=== PATIENT | female | born 1950 | race Caucasian/White ===

== ENCOUNTER 2024-04-22 16:00 | Inpatient (IN) | payer MEDICARE, SELFPAY ==
[2024-04-22] VITALS (11 sets, daily range): BP systolic 120–170; BP diastolic 54–96; PULSE 72–85; RESP 12–22; TEMP 36.3–37.2; O2SAT 97–100; BMI 24.0
--- NOTE | 2024-04-22 17:02 | CT_ITS ---
STUDY: CT ABDOMEN AND PELVIS WITH CONTRAST REASON FOR EXAM: Female, 73 years old. abdominal pain RADIATION DOSAGE (If Supplied By Facility): CTDIvol = ( 7.90 ) mGy, DLP = ( 301.85 ) mGycm TECHNIQUE: Transaxial images were obtained from the dome of the diaphragm to the symphysis pubis without oral contrast. IV 100mL Isovue-370 was administered. Sagittal and coronal images were reconstructed. Individualized dose optimization techniques were used for this CT. COMPARISON: None. FINDINGS: The visualized lung bases are unremarkable. The visualized portions of the heart are within normal limits. Normal liver. There are surgical clips in the gallbladder fossa consistent with a prior cholecystectomy. Normal spleen. Incidental 2.2 cm splenule at the splenic hilum. Normal pancreas. Normal bilateral adrenal glands. Normal right kidney. Normal left kidney. Evaluation of the GI tract is limited by absence of oral contrast. Cannot exclude stomach wall thickening. No dilated loops of bowel or evidence for obstruction. Cannot exclude segmental thickening of the soler of the small bowel. Cannot exclude enteritis. Diffusely abnormal large bowel consistent with marked diffuse wall thickening and pericolonic fat stranding. Findings most consistent with severe nonspecific pancolitis. Diverticulosis without definite diverticulitis. Appendix within normal limits. Normal abdominal aorta. Normal inferior vena cava. Normal retroperitoneum. Normal urinary bladder. There is absence of the uterus consistent with a prior hysterectomy. Normal abdominal wall. Normal osseous structures. CT/Abdomen/Pelvis W IV Cont ONLY IMPRESSION: Severe nonspecific pancolitis. Electronically Signed: Bartolome Moseley MD at 18:25 EDT ,
[2024-04-22 17:14] LABS: Absolute Lymphocyte Count 0.94 X10^3/uL (0.83-4.51); Absolute Neutrophil Count 22.1 X10^3/uL (2.0-7.7); Basophil# 0.07 X10^3/uL; Basophil% 0.3 % (0-1); Eosinophil# 0.09 X10^3/uL; Eosinophils% 0.4 % (0-5); Hematocrit 37.7 % (37-47); Hemoglobin 12.9 g/dL (12.0-15.0); Lymphocyte # 0.94 X10^3/ul (0.83-4.51); Lymphocyte % 3.9 % (19-41); Mean Corp Hgb Conc 34.2 g/dL (32-36); Mean Corpuscular Hgb 28.4 pg (27.0-32.0); Mean Platelet Vol. 10.5 fl (6.2-12.0); Monocyte# 0.89 X10^3/uL; Monocyte% 3.7 % (0-10); NRBC Flagged by Analyzer 0 % (0-5); Neutrophil # 22.05 X10^3/uL (2.7-7.7); Neutrophil % 90.9 % (47-70); POSITIVE DIFFERENTIAL YES; Platelet Count 269 K/mm3 (150-450); RBC Distribution Width CV 13.2 % (11.6-14.6); RBC Distribution Width SD 39.8 fl (35.1-43.9); Red Blood Count 4.54 M/mm3 (4.2-5.4); White Blood Count 24.2 K/mm3 (4.4-11.0)
--- NOTE | 2024-04-22 17:14 | EX.ED.GENINJ ---
HPI History of Present Illness Chief Complaint: Nausea/Vomiting/Diarrhea Narrative Narrative: Chief complaint and HPI: Abdominal pain. 73-year-old female with history of HTN, gout, history of C. difficile who lives in [place] presents for evaluation of abdominal pain, nausea, vomiting, diarrhea. Patient states she recently traveled here from [place]. She states for the past several days she has been having symptomatic fevers, abdominal pain, nausea, vomiting, diarrhea. She states this is different than her C. difficile. She denies any recent antibiotic use. She denies any chest pain, shortness of breath, cough, URI symptoms. Denies any dark or bloody bowel movements. Denies any dysuria or hematuria. Does endorse decreased p.o. intake as well as increasing weakness. Review of systems: See HPI Medications: As listed on the chart Allergies: As listed on the chart PFSH: Per chart Vital signs: As listed on the chart. Reviewed. Physical exam: Gen: A&O x3, NAD but unwell appearing Head: Normocephalic, atraumatic Eyes: No sclera icterus, conjunctiva clear ENT: Dry mucous membranes Neck: Trachea midline, No JVD CV: RRR, no murmurs, no peripheral edema Resp: Lungs CTA BL, no w/r/c GI: Abd soft, non-distended, diffuse tenderness to palpation worse in the bilateral lower quadrants, voluntary guarding, no rebound, no rigidity Musc: Full ROM, no deformity Skin: Warm, dry Neuro: Alert, oriented, grossly intact, sensation intact Psych: Cooperative, appropriate mood and affect [facility] Medical History (Updated 04/22/24 @ 20:[address] Jordyn Queen MD) Iron deficiency anemia Chronic anemia GERD (gastroesophageal reflux disease) History of Clostridium difficile colitis Former tobacco use HTN (hypertension) HLD (hyperlipidemia) CKD (chronic kidney disease), stage III Diabetes mellitus, type 2 CAD (coronary artery disease) Heart failure Myocardial infarct Home Medications ?Medication ?Instructions ?Recorded ?Last Taken ?Type allopurinol 100 mg tablet 100 mg PO DAILY 04/22/24 04/21/24 History aspirin 81 mg capsule 81 mg PO DAILY 04/22/24 04/21/24 History carvedilol 25 mg tablet 25 mg PO BID 04/22/24 04/21/24 History clopidogrel 75 mg tablet 75 mg PO QHS 04/22/24 04/21/24 History duloxetine 60 mg capsule,delayed 60 mg PO BID 04/22/24 04/21/24 History release ergocalciferol (vitamin D2) 1,250 1,250 mcg PO QWEEK 04/22/24 04/21/24 History mcg (50,000 unit) capsule ferrous sulfate 325 mg (65 mg 325 mg PO QHS 04/22/24 04/21/24 History iron) tablet (FeroSul) gabapentin 600 mg tablet 600 mg PO QHS 04/22/24 04/21/24 History linagliptin 5 mg tablet (Tradjenta) 5 mg PO DAILY 04/22/24 04/21/24 History ondansetron 4 mg disintegrating 4 mg PO Q6H PRN PRN nausea/vomiting 04/22/24 Unknown History tablet pantoprazole 40 mg tablet,delayed 40 mg PO DAILY 04/22/24 04/21/24 History release quetiapine 50 mg tablet 50 mg PO QHS 04/22/24 04/21/24 History rosuvastatin 40 mg tablet 40 mg PO QHS 04/22/24 04/21/24 History tizanidine 6 mg capsule 6 mg PO QHS 04/22/24 04/21/24 History Allergy/AdvReac Type Severity Reaction Status Date / Time No Known Allergies Allergy Verified 04/22/24 16:02 Family History (Updated 04/22/24 @ 20:[address] Jordyn Queen MD) Mother Heart disease Hypertension Heart failure Family History other Surgical History (Updated 04/22/24 @ 20:[address] Jordyn Queen MD) S/P tonsillectomy and adenoidectomy S/P cholecystectomy History of bladder surgery History of hysterectomy Hx of coronary angioplasty Social History (Updated 04/22/24 @ 20:[address] Jordyn Queen MD) household members: other details: Visiting sister in [facility]. She lives in [place]. Smoking Status: Former smoker how long ago did patient quit smoking: Quit 5-6 years prior, smoked 1 ppd since teen until quit. alcohol intake: never substance use type: marijuana EXAM Physical Exam Const Vital Signs: 04/22/24 16:02 04/22/24 16:07 04/22/24 18:01 Temperature 98.1 F Temperature Source Oral Pulse Rate 84 84 79 Respiratory Rate 22 H 16 16 Blood Pressure 170/83 H 170/83 H 131/85 H Blood Pressure Mean 112 112 100 Pulse Ox 97 97 Oxygen Delivery Method Room Air Room Air Room Air 04/22/24 19:33 04/22/24 19:34 04/22/24 20:00 Temperature 98.6 F 98.6 F Temperature Source Oral Pulse Rate 77 77 75 Respiratory Rate 16 16 19 H Blood Pressure 136/63 H 136/63 H 136/76 H Blood Pressure Mean 87 87 96 Pulse Ox 97 97 97 Oxygen Delivery Method Room Air Room Air MDM MDM MDM Narrative Medical decision making narrative: 73-year-old female presents for evaluation of abdominal pain, nausea, vomiting, diarrhea. Differential diagnosis includes but is not limited to diverticulitis, appendicitis, pancreatitis, other intra-abdominal pathology, dehydration, viral illness. NS bolus, morphine, Zofran ordered for symptoms. Abdominal pain workup ordered including CT abdomen and pelvis. CBC with a leukocytosis of 24.2.CMP positive for dehydration including hyponatremia at 134, hypokalemia of 3, and renal insufficiency of 1.67. Patient does have an anion gap of 16. Given that patient is from [place] I do not have previous labs to compare to. This may be baseline renal insufficiency versus AYDEN. Patient is a poor historian about her medical history. Therefore, I did call the patient's daughter from [place] and she states that her mother has had issues in the past with her kidneys when she was hospitalized but she does not know if she has chronic kidney disease or what her baseline creatinine is. Lactic acid unremarkable. No transaminitis. Alk phos mildly elevated at 122. This is likely secondary from her nausea and vomiting. Lipase unremarkable. Patient is positive for COVID-19. CT abdomen pelvis shows severe nonspecific pancolitis. Given her leukocytosis and her symptoms, will give a dose of Zosyn. UA and C. difficile pending at this time. Patient will require admission for further treatment and monitoring. Patient was discussed with the hospitalist, Dr. Queen. Given her history of diabetes and anion gap, she recommended acetone level as well as UA be drawn and resulted prior to final disposition. With concern of possible DKA, I did add on a venous pH. UA positive for ketones, glucose, and blood. Negative for infection. She has moderate acetone and venous pH is 7.28. Patient is in DKA. Insulin drip started as well as potassium replacement. Will add on magnesium level. Will continue fluid hydration. Patient was discussed with Dr. Queen and patient will be admitted to the ICU for further care and management. Patient and family confirmed understanding of the plan. 30 minutes of critical care time utilized in managing the patient. This is due to high probability of and deterioration of the patient based on the patient's condition and excludes any separately billable procedures. Impression: 1. DKA with history of DM 2 2. Pancolitis 3. COVID-19 infection 4. Dehydration with renal insufficiency versus AYDEN 5. Hyponatremia 6. Hypokalemia Lab Data Labs: Laboratory Results - last 24 hr 04/22/24 04/22/24 04/22/24 16:10 16:10 17:09 WBC 24.2 H RBC 4.54 Hgb 12.9 Hct 37.7 MCV 83.0 MCH 28.4 MCHC 34.2 RDW Std Deviation 39.8 RDW Coeff of Mary 13.2 Plt Count 269 MPV 10.5 Immature Gran % (Auto) 0.800 Neut % (Auto) 90.9 H Lymph % (Auto) 3.9 L [place] % (Auto) 3.7 Eos % (Auto) 0.4 Baso % (Auto) 0.3 Absolute Neuts (auto) 22.1 H Absolute Lymphs (auto) 0.94 Nucleated RBC % 0 Differential Comment SCANNED ESR Cancelled D-Dimer Quant (PE/DVT) 2.33 H* Sodium 134 L Potassium 3.0 L Chloride 99 Carbon Dioxide 19.0 L Anion Gap 16 H BUN 19 H Creatinine 1.67 H Estim Creat Clear Calc 25.27 Est GFR (MDRD) Af Amer 39 L Est GFR (MDRD) Non-Af 32 L BUN/Creatinine Ratio 11.4 Glucose 221 H Lactic Acid 1.3 Calcium 9.3 Phosphorus 3.3 Magnesium 1.7 1.8 Ferritin 699 H Total Bilirubin 0.80 AST 8 L ALT 12 L Alkaline Phosphatase 122 H Lactate Dehydrogenase 214 Total Creatine Kinase 26 C-React Prot Ext Range 254.00 H B-Natriuretic Peptide 23.6 Total Protein 7.0 Albumin 3.0 L Globulin 4.0 Albumin/Globulin Ratio 0.8 L Lipase 15 Procalcitonin Urine Color Urine Clarity Urine pH Ur Specific [place] Urine Protein Urine Glucose (UA) Urine Ketones Urine Occult Blood Urine Nitrite Urine Bilirubin Urine Urobilinogen Ur Leukocyte Esterase Urine RBC Urine WBC Ur Squamous Epith Cells Urine Bacteria Urine Mucus Acetone Level 04/22/24 04/22/24 19:40 20:00 WBC RBC Hgb Hct MCV MCH MCHC RDW Std Deviation RDW Coeff of Mary Plt Count MPV Immature Gran % (Auto) Neut % (Auto) Lymph % (Auto) [place] % (Auto) Eos % (Auto) Baso % (Auto) Absolute Neuts (auto) Absolute Lymphs (auto) Nucleated RBC % Differential Comment ESR D-Dimer Quant (PE/DVT) Sodium Potassium Chloride Carbon Dioxide Anion Gap BUN Creatinine Estim Creat Clear Calc Est GFR (MDRD) Af Amer Est GFR (MDRD) Non-Af BUN/Creatinine Ratio Glucose Lactic Acid Calcium Phosphorus Magnesium Ferritin Total Bilirubin AST ALT Alkaline Phosphatase Lactate Dehydrogenase Total Creatine Kinase C-React Prot Ext Range B-Natriuretic Peptide Total Protein Albumin Globulin Albumin/Globulin Ratio Lipase Procalcitonin 0.23 H Urine Color Yellow Urine Clarity Clear Urine pH 6.0 Ur Specific [place] 1.015 Urine Protein 30 H Urine Glucose (UA) 1000 H Urine Ketones 50 H Urine Occult Blood 25 H Urine Nitrite Negative Urine Bilirubin Negative Urine Urobilinogen Normal Ur Leukocyte Esterase Negative Urine RBC 0-5 SEEN Urine WBC 0-5 SEEN Ur Squamous Epith Cells 5-10 SEEN Urine Bacteria 0 SEEN Urine Mucus 0 SEEN Acetone Level MODERATE H Radiography Diagnostic Testing: Clinical Impression(s) from Imaging Studies Abdomen/Pelvis CT 04/22/24 17:02 IMPRESSION: Severe nonspecific pancolitis. Electronically Signed: Bartolome Moseley MD at 18:25 EDT , Discharge Plan Disposition Disposition: Acute Care Hospital [facility] Discharge Date/Time: 04/22/24 23:11
[2024-04-22] MEDS: Morphine 2 MG/ML Syringe IV (17:20)
[2024-04-22] MEDS: Ondansetron 4 MG/2 ML Vial IV (17:20)
[2024-04-22] MEDS: 0.9% Normal Saline (1000mL) 1,000 ML 999 ML IV ×2 (17:21→20:35)
[2024-04-22 17:29] LABS: ALB/GLOB Ratio 0.8 RATIO (0.9-2.4); AST(SGOT) 8 U/L (15-37); Alanine Aminotransfer ALT/SGPT 12 U/L (13-56); Alkaline Phosphatase 122 U/L (45-117); Anion Gap 16 (5-15); BUN 19 mg/dL (7-18); BUN/Creat Ratio 11.4 RATIO (10-20); Calcium,Total 9.3 mg/dL (8.5-10.1); Chloride 99 mmol/L (98-107); Creatinine, Serum 1.67 mg/dL (0.55-1.02); EST Glomerular Filtration Rate 32 mL/min (>60); Est Glom Filt Rate - Afr Amer 39 mL/min (>60); Estimated Creatinine Clearance 25.27 ml/min; Glucose 221 mg/dL (74-106); Lipase 15 U/L (13-75); Sodium Level 134 mmol/L (136-145)
[2024-04-22 17:45] LABS: Lactic Acid 1.3 mmol/L (0.4-1.9)
[2024-04-22 17:47] LABS: Differential Indicated SCAN CRITERIA MET
[2024-04-22] MEDS: Piperacil/Tazobactam 3.375 GM in 0.9% Normal Saline (50mL MB+) 50 ML IV (19:28)
[2024-04-22 19:30] LABS: Differential Comment SCANNED
--- NOTE | 2024-04-22 19:31 | ED.RN ---
Pt PCP is Dr. Cathryn Klein [phone]
--- NOTE | 2024-04-22 20:04 | HP.PCM.HOS_ITS ---
HPI - General General Date of Admission: 04/22/24 Date of Service: 04/22/24 Chief Complaint: N/V/D x 3 days. HPI Narrative The patient is a 73 y/o F w/ PMHx: Chronic anemia/Fe deficiency anemia, Anxiety and Depression, Gout, CKD stage III unclear subtype, Former tobacco use, HTN, HLD, HF unclear type, GERD, Diabetes mellitus type II w/ chronic neuropathy, Hx C. difficile colitis, CAD s/p PCI x 2 who presents to the [facility] ED on 04/22/24 with history of visiting from [place] where she lives with onset of abdominal discomfort, nausea and emesis as well as significant loose stools ongoing x 3 days reporting that this is significantly different than her previous history of C. difficile colitis with no recent antibiotic usage and no specific recent URI type symptoms, cough or dyspnea with significant decreased oral intake as well as fatigue and malaise prompting eventual ED evaluation. Her sister who is present denies being ill herself. Patient notes currently her abdomen is more generalized sore and cramping, rating the discomfort at 3-4 out of 10 in severity. She notes currently her nausea is mildly improved. Workup in the ED included T98.1, heart rate 84, BP initially 170/83 with most recent repeat BP 131/85, respiratory rate 16, 97% on room air, CBC with WBC 24.2, hemoglobin 12.9, platelet 269 with significant left shift, CMP with sodium 134, potassium 3.0, carbon oxide 19, anion gap 16, BUN/creatinine 19/1.67, GFR 32, glucose 221, lactic acid 1.3, hepatic profile AST/LT 8/12, alk phos 122, lipase 15, rapid SARS COVID positive, CT abdomen and pelvis with severe nonspecific pancolitis. In the ED patient ministered 1 L normal saline, morphine 2 mg. Discussed with ED physician given labs and history and will also obtain UA, procalcitonin, acetone level prior to level of care admission decision. [facility] Medical History (Updated 04/22/24 @ 20:[address] Jordyn Queen MD) Iron deficiency anemia Chronic anemia GERD (gastroesophageal reflux disease) History of Clostridium difficile colitis Former tobacco use HTN (hypertension) HLD (hyperlipidemia) CKD (chronic kidney disease), stage III Diabetes mellitus, type 2 CAD (coronary artery disease) Heart failure Myocardial infarct Home Medications ?Medication ?Instructions ?Recorded ?Last Taken ?Type allopurinol 100 mg tablet 100 mg PO DAILY 04/22/24 04/21/24 History aspirin 81 mg capsule 81 mg PO DAILY 04/22/24 04/21/24 History carvedilol 25 mg tablet 25 mg PO BID 04/22/24 04/21/24 History clopidogrel 75 mg tablet 75 mg PO QHS 04/22/24 04/21/24 History duloxetine 60 mg capsule,delayed 60 mg PO BID 04/22/24 04/21/24 History release ergocalciferol (vitamin D2) 1,250 1,250 mcg PO QWEEK 04/22/24 04/21/24 History mcg (50,000 unit) capsule ferrous sulfate 325 mg (65 mg 325 mg PO QHS 04/22/24 04/21/24 History iron) tablet (FeroSul) gabapentin 600 mg tablet 600 mg PO QHS 04/22/24 04/21/24 History linagliptin 5 mg tablet (Tradjenta) 5 mg PO DAILY 04/22/24 04/21/24 History ondansetron 4 mg disintegrating 4 mg PO Q6H PRN PRN nausea/vomiting 04/22/24 Unknown History tablet pantoprazole 40 mg tablet,delayed 40 mg PO DAILY 04/22/24 04/21/24 History release quetiapine 50 mg tablet 50 mg PO QHS 04/22/24 04/21/24 History rosuvastatin 40 mg tablet 40 mg PO QHS 04/22/24 04/21/24 History tizanidine 6 mg capsule 6 mg PO QHS 04/22/24 04/21/24 History Allergy/AdvReac Type Severity Reaction Status Date / Time No Known Allergies Allergy Verified 04/22/24 16:02 Family History (Updated 04/22/24 @ 20:[address] Jordyn Queen MD) Mother Heart disease Hypertension Heart failure other (Patient does not know her father nor her paternal family history.) Surgical History (Updated 04/22/24 @ 20:[address] Jordyn Queen MD) S/P tonsillectomy and adenoidectomy S/P cholecystectomy History of bladder surgery History of hysterectomy Hx of coronary angioplasty Social History (Updated 04/22/24 @ 20:[address] Jordyn Queen MD) household members: other details: Visiting sister in [facility] [place]. She lives in [place]. Smoking Status: Former smoker how long ago did patient quit smoking: Quit 5-6 years prior, smoked 1 ppd since teen until quit. alcohol intake: never substance use type: marijuana ROS ROS Narrative Admission Review of Systems: CONSTITUTIONAL: No weight loss, fever, chills, + weakness or fatigue. HEENT: Eyes: No visual loss, blurred vision, double vision or yellow sclerae. Ears, Nose, Throat: No hearing loss, sneezing. SKIN: No rash or itching, lesions, wounds. CARDIOVASCULAR: No chest pain, chest pressure or chest discomfort, palpitations, edema, orthopnea, syncopal events. RESPIRATORY: No marked dyspnea, cough, URI type symptoms, marked sputum, wheezing, hemoptysis. GASTROINTESTINAL: + anorexia, nausea, vomiting, diarrhea, abdominal pain. No melena, BRBPR. GENITOURINARY: No dysuria, frequency, urgency or retention. NEUROLOGICAL: + Mild lightheadedness, dizziness. No syncope, paralysis, ataxia, numbness or tingling in the extremities, focal weakness, change in bowel or bladder control, seizure. MUSCULOSKELETAL: + muscle, back pain, joint pain or stiffness. HEMATOLOGIC: No anemia. + Easy bleeding/bruising. LYMPHATICS: No enlarged nodes. No history of splenectomy. PSYCHIATRIC: + History of anxiety and depression. ENDOCRINOLOGIC: No reports of sweating, cold or heat intolerance. No polyuria or polydipsia. ALLERGIES: No history of asthma, hives, eczema or rhinitis. Vital Signs Vital Signs Vital Signs: 04/22/24 16:02 04/22/24 16:07 04/22/24 18:01 Temperature 98.1 F Temperature Source Oral Pulse Rate 84 84 79 Respiratory Rate 22 H 16 16 Blood Pressure 170/83 H 170/83 H 131/85 H Blood Pressure Mean 112 112 100 Pulse Ox 97 97 Oxygen Delivery Method Room Air Room Air Room Air 04/22/24 19:33 04/22/24 19:34 Temperature 98.6 F 98.6 F Temperature Source Oral Pulse Rate 77 77 Respiratory Rate 16 16 Blood Pressure 136/63 H 136/63 H Blood Pressure Mean 87 87 Pulse Ox 97 97 Oxygen Delivery Method Room Air Weight Weight: 127 lb 6.835 oz Body Mass Index (BMI) 24.0 Physical Exam Narrative Physical Examination: General: Awake, alert, oriented x 3 and cooperative, seated upright in the ED bed, fatigued, notes nausea is improved but still significantly diaphoretic and ill-appearing. Skin: Normal color, normal turgor, no icterus, no cyanosis except occasional stage ecchymoses. HEENT: AT/NC, EOMI, PERRLA, dry MM, no carotid bruits or JVD noted. Lungs: Diffusely diminished, greater bases, increased respiratory rate, no rales, ronchi or wheezing. Heart: Currently regular rate with regular rhythm; no gallop, rub audible. Abdomen: Soft, mild generalized discomfort to palpation but no rebound or guarding, hyperactive BS, no discerned HSM. Extremities: No cyanosis, clubbing, or edema. Neurological: Patient awake, alert, oriented as noted, cognitive function intact; pupils equally reactive to light and accommodation, cranial nerves grossly normal, moving all 4 extremities, no focal deficits, strength moderately to severely global decrease secondary to acute presentation. Psychiatric: Affect appears fatigued, ill-appearing, no acute evidence of depressive or anxiety feelings. Results Lab / Micro Data 04/22/24 16:10 04/22/24 16:10 Labs: Laboratory Results - last 24 hr 04/22/24 16:10: WBC 24.2 H, RBC 4.54, Hgb 12.9, Hct 37.7, MCV 83.0, MCH 28.4, MCHC 34.2, RDW Std Deviation 39.8, RDW Coeff of Mary 13.2, Plt Count 269, MPV 10.5, Immature Gran % (Auto) 0.800, Neut % (Auto) 90.9 H, Lymph % (Auto) 3.9 L, [place] % (Auto) 3.7, Eos % (Auto) 0.4, Baso % (Auto) 0.3, Absolute Neuts (auto) 22.1 H, Absolute Lymphs (auto) 0.94, Nucleated RBC % 0, Differential Comment SCANNED, Sodium 134 L, Potassium 3.0 L, Chloride 99, Carbon Dioxide 19.0 L, A nion Gap 16 H, BUN 19 H, Creatinine 1.67 H, Estim Creat Clear Calc 25.27, Est GFR (MDRD) Af Amer 39 L, Est GFR (MDRD) Non-Af 32 L, BUN/Creatinine Ratio 11.4, Glucose 221 H, Calcium 9.3, Total Bilirubin 0.80, AST 8 L, ALT 12 L, Alkaline Phosphatase 122 H, Total Protein 7.0, Albumin 3.0 L, Globulin 4.0, A lbumin/Globulin Ratio 0.8 L, Lipase 15 04/22/24 17:09: Lactic Acid 1.3 Micro: Microbiology 04/22/24 16:10 Mucosa - Nose SARS-CoV-2, Influenza & RSV (PCR) - Final SARS-CoV-2 (COVID 19 PCR) Imaging Radiology Impression Abdomen/Pelvis CT 04/22/24 17:02 IMPRESSION: Severe nonspecific pancolitis. Electronically Signed: Bartolome Moseley MD at 18:25 EDT , Assessment & Plan Assessment/Plan (1) COVID-19: (2) Nausea vomiting and diarrhea: PLAN: Plan The patient is a 73 y/o F w/ PMHx: Chronic anemia/Fe deficiency anemia, Anxiety and Depression, Gout, CKD stage III unclear subtype, Former tobacco use, HTN, HLD, HF unclear type, GERD, Diabetes mellitus type II w/ chronic neuropathy, Hx C. difficile colitis, CAD s/p PCI x 2 who presents to the [facility] ED on 04/22/24 with history of visiting from [place] where she lives with onset of abdominal discomfort, nausea and emesis as well as significant loose stools ongoing x 3 days reporting that this is significantly different than her previous history of C. difficile colitis with no recent antibiotic usage and no specific recent URI type symptoms, cough or dyspnea with significant decreased oral intake as well as fatigue and malaise prompting eventual ED evaluation. #1. Acute intractable nausea, emesis, diarrhea suspected secondary to Acute Viral Syndrome, COVID-19 with noted [address] on CT imaging, unable to immediately rule out infectious etiology with underlying history of clustered and distal colitis concurrently: As noted awaiting further evaluation to assure not in DKA prior to decision of placement. Once clarified we will plan to admit to MedSurg if no DKA however if DKA present will necessitate intensive care for insulin drip usage. Will maintain on COVID precautions, currently no evidence of any hypoxia, PRN albuterol, HOB, IS parameters w/ pending D-dimer, CRP, CPK, Ferritin, LDH, trop and BNP, continue supportive care including q 2 hour turning including prone given no prone bed availability and judicious hydration, closely monitor for worsening status for ARDS and multiorgan failure. Given significant nausea, emesis, diarrhea with COVID illness we will initiate IV remdesivir but will defer steroids especially given unclear if patient is in DKA and no evidence of any hypoxia nor any marked aggressive respiratory symptoms although she is only day 3 thus this could develop at a later date. As noted will judiciously hydrate, allow clears until clinically improving, will maintain on IV PPI as long C. difficile is negative, as needed antiemetic and pain regimen. Will hold on any further IV Zosyn until procalcitonin is resulted and if this is negative and enteric pathogen/C. difficile is unremarkable would administer antidiarrheal regimen and placed on lactobacillus. Given C. difficile history would like to defer any antibiotics if this is purely COVID related. #2. Diabetes mellitus type II with chronic neuropathy in the setting of Hyperglycemia with elevated anion gap unable to immediately rule out DKA: Given presentation as discussed with ED physician will obtain urinalysis, acetone to assure that patient is not in DKA as this will change level of care and treatment. Will await acetone and if this is positive then patient will need to be initiated on insulin drip with DKA protocol and would necessitate at that point ICU placement. Certainly given presentation could be associated with starvation ketosis given poor oral intake with nausea, vomiting, diarrhea in the setting of COVID but still concerned present. As noted above will maintain n.p.o. status until assure not DKA otherwise if this is negative would plan clears and advance diet as tolerated, if no evidence of DKA also would maintain on every 6 hours Accu-Cheks with insulin sliding scale. Will continue patient home gabapentin regimen #3. Hyponatremia, suspected hypovolemic given GI losses: Admission CMP with sodium 134, chloride 99, will judiciously hydrate given COVID illness and repeat CMP in AM. #4. Hypokalemia: Admission K+ 3.0, magnesium level requested, supplementation given, repeat level in AM. #5. CAD: Status post PCI x 2, continue aspirin, Plavix, statin, Coreg as BP allows, not on GOPI number/ARB per current list possibly secondary to underlying renal disease. #6. Chronic Kidney Disease Stage III, unclear subtype, unable to rule out elevated creatinine above baseline/renal insufficiency/AYDEN is unclear previous baseline but patient does note CKD stage III history: Admission BUN/Cr 19/1.67, GFR 32, baseline renal function unknown thus unclear comparison, repeat BMP in AM to further elucidate. #7. Chronic anemia/iron deficiency anemia: Admission hemoglobin 12.9, MCV 83, no clear comparison but does have noted history, will continue to trend CBC, continue iron supplementation. #8. Heart failure, unclear type: Patient does not know and unfortunately has no medical records available, will continue aspirin, Plavix, statin, Coreg as BP allows, not on GOPI inhibitor/ARB nor any diuretic therapy, given presentation plan judicious hydration thus will closely monitor for any overload. #9. Hypertension: Continue home regimen including Coreg with hold parameters as needed, PRN hydralazine. #10. Hyperlipidemia: New patient on statin therapy. #11. Anxiety depression/mood disorder: We will continue patient low-dose Seroquel as well as duloxetine home regimen. #12. GERD: Will maintain on IV PPI until clinically improving as long as C. difficile is negative. #13. Gout: We will continue patient on allopurinol regimen. #14. Former tobacco use: Encourage continue tobacco cessation. #15. DVT prophylaxis: Lovenox twice daily for DVT prophylaxis in the setting of COVID. #16. CODE status: Patient does not have healthcare power of energy attorney or living will in place but notes her sister who is present in the ED would be her decision-maker at this time if necessary. Discussed CODE status at length including difference between FULL code, DNR-CCA and DNR-CC status. Following discussions about the differences in these status, requested Full Code status. Advanced Care Planning Face to Face Time: 16 minutes. Charges/Coding Visit Charges Inpatient E&M: 15205 Init Hosp L3 Procedures Hospitalists Procedures: 00025 Advncd Care Plan 30 Min
[2024-04-22 20:20] LABS: Bacteria 0 SEEN /hpf (None Seen); Mucous, Urine 0 SEEN /hpf (<or=2+)
[2024-04-22 20:20] LABS: Procalcitonin 0.23 ng/mL (0.00-0.09)
[2024-04-22 20:22] LABS: Color, Urine Yellow (Yellow); Glucose, Dipstick 1000 mg/dl (Normal); Ketone-Dipstick 50 mg/dl (Negative); Leukocyte Esterase-Dipstick Negative /ul (Negative); Nitrite-Dipstick Negative (Negative); Occult Blood-Urine 25 /ul (Negative); Protein-Dipstick 30 mg/dl (Negative); Specific Gravity, Urine 1.015 (1.002-1.030); Urine Bilirubin Dipstick Negative (Negative); Urine Clarity Clear (Clear); Urine Urobilinogen Normal (Normal)
[2024-04-22 20:33] LABS: Red Blood Cells-Urine 0-5 SEEN /hpf (0-5); Squamous Epithelial Cells - UA 5-10 SEEN /hpf (5-10); White Blood Cells 0-5 SEEN /hpf (0-5)
[2024-04-22 20:43] LABS: Magnesium 1.7 mg/dL (1.6-2.6)
[2024-04-22 21:00] LABS: Bedside Glucose 223 mg/dL (74-106)
[2024-04-22 21:01] LABS: CPK Total, Creatine Kinase 26 U/L (26-192); D-Dimer Quantitative (DVT/PE) 2.33 FEU/ug/m (0.27-0.49); Ferritin 699 ng/mL (8-252); LDH 214 U/L (84-246); Magnesium 1.8 mg/dL (1.6-2.6); Phosphorus 3.3 mg/dL (2.5-4.9)
[2024-04-22 21:05] LABS: BNP,B-Type NATRIURETIC PEPTIDE 23.6 pg/mL (0-100)
[2024-04-22 21:09] LABS: Blood Gas Specimen Type VEN; O2 Delivery Device Not entered; SITE Not entered; VBG BASE EXCESS -8 mmol/L (-1.0-3.5); VBG Bicarbonate 19 mmol/L (22-26); VBG PO2 52 mmHg (25-40); VBG SO2 82 % (50-70); VBG TCO2 20 mmol/L (23-33); VBG pCO2 39.6 mmHg (41-51); VBG pH 7.28 (7.32-7.42)
[2024-04-22] MEDS: Potassium Chloride 10mEq/100mL 10 MEQ/100 ML IV.SOLN. 100 MEQ IV BOLUS ×3 (21:20→23:49)
[2024-04-22] MEDS: Insulin Lispro 100 UNIT in 0.9% Normal Saline (100mL Bag) 99 ML 5.8 UNIT CONT INF ×2 (21:53→23:30)
[2024-04-22 22:03] LABS: Bedside Glucose 199 mg/dL (74-106)
[2024-04-22 23:27] LABS: Bedside Glucose 169 mg/dL (74-106)
[2024-04-22] MEDS: 0.9% Normal Saline (1000mL) 1,000 ML 125 ML IV (23:51)
[2024-04-23] VITALS (24 sets, daily range): BP systolic 101–163; BP diastolic 55–88; PULSE 63–84; RESP 10–19; TEMP 36–36.6; O2SAT 95–100; BMI 25.1
[2024-04-23 00:05] LABS: Anion Gap 12 (5-15); BUN 18 mg/dL (7-18); BUN/Creat Ratio 11.5 RATIO (10-20); Calcium,Total 8.4 mg/dL (8.5-10.1); Chloride 106 mmol/L (98-107); Creatinine, Serum 1.56 mg/dL (0.55-1.02); EST Glomerular Filtration Rate 35 mL/min (>60); Est Glom Filt Rate - Afr Amer 42 mL/min (>60); Estimated Creatinine Clearance 27.05 ml/min; Glucose 132 mg/dL (74-106); Potassium 3.2 mmol/L (3.5-5.1); Sodium Level 136 mmol/L (136-145)
[2024-04-23] MEDS: Ondansetron 4 MG/2 ML Vial IV (00:07)
--- NOTE | 2024-04-23 00:10 | VDLE_ITS ---
Reason For Study: Elevated D Dimer RIGHT LEFT GSV is normal. GSV is normal. CFV is compressible, spontaneous, phasic, CFV is compressible, spontaneous, phasic, competent and demonstrates normal competent, and demonstrates normal augmentation. augmentation. FV is compressible, spontaneous, phasic, FV is compressible, spontaneous, phasic, competent and demonstrates normal competent and demonstrates normal augmentation. augmentation. POP V is compressible, spontaneous, phasic, POP V is compressible, spontaneous, phasic, competent and demonstrates normal competent and demonstrates normal augmentation. augmentation. T/P Trunk is compressible. T/P Trunk is compressible. PTV is compressible. PTV is compressible. RT PerV is compressible. LT PerV is compressible. Procedure This is a venous duplex using B-mode, color flow and spectral Doppler. Exam performed portable in ICU/CCU. The exam was diagnostic. A preliminary report was called and/or faxed to ICU bariatric program coordinator. VL/Venous Duplex US - Jarvis Extrem Interpretation Summary Deep veins of the bilateral lower extremities are patent and compressible segme ntally. There is no evidence of bilateral lower extremity deep vein thrombosis. The bilateral great saphenous veins appear patent and compressible segmentally. Ordering Physician: Jordyn Queen Referring Physician: N/A Performed By: Rush Craig RVT
[2024-04-23 00:33] LABS: Bedside Glucose 121 mg/dL (74-106)
[2024-04-23] MEDS: Dext 5%-0.45% NS 1,000 ML 150 ML IV (00:39)
[2024-04-23] MEDS: 0.9% Saline Lock 10 ML Syringe IV ×2 (00:40→21:31)
[2024-04-23] MEDS: Potassium Chloride 10mEq/100mL 10 MEQ/100 ML IV.SOLN. 100 MEQ IV BOLUS ×5 (01:00→14:06)
[2024-04-23] MEDS: 0.9% Normal Saline (250mL Bag) 250 ML 15 ML IV ×2 (02:12→08:22)
[2024-04-23] MEDS: Pantoprazole Sodium 40 MG in 0.9% Normal Saline (100mL MB+) 100 ML 330 MG IV ×3 (02:12→21:29)
[2024-04-23] MEDS: Remdesivir 200 MG in 0.9% Normal Saline (250mL Bag) 210 ML 250 MG IV (02:53)
[2024-04-23 03:15] LABS: Bedside Glucose 108 mg/dL (74-106)
[2024-04-23 03:15] LABS: Bedside Glucose 100 mg/dL (74-106)
[2024-04-23 04:30] LABS: Absolute Lymphocyte Count 1.07 X10^3/uL (0.83-4.51); Absolute Neutrophil Count 20.8 X10^3/uL (2.0-7.7); Basophil# 0.05 X10^3/uL; Basophil% 0.2 % (0-1); Eosinophil# 0.12 X10^3/uL; Eosinophils% 0.5 % (0-5); Hematocrit 30.8 % (37-47); Hemoglobin 10.7 g/dL (12.0-15.0); Lymphocyte # 1.07 X10^3/ul (0.83-4.51); Lymphocyte % 4.5 % (19-41); Mean Corp Hgb Conc 34.7 g/dL (32-36); Mean Corpuscular Hgb 28.8 pg (27.0-32.0); Mean Corpuscular Volume 82.8 fL (81-99); Mean Platelet Vol. 9.6 fl (6.2-12.0); Monocyte# 1.32 X10^3/uL; Monocyte% 5.6 % (0-10); NRBC Flagged by Analyzer 0 % (0-5); Neutrophil # 20.82 X10^3/uL (2.7-7.7); Neutrophil % 88.5 % (47-70); POSITIVE DIFFERENTIAL YES; Platelet Count 232 K/mm3 (150-450); RBC Distribution Width CV 13.1 % (11.6-14.6); RBC Distribution Width SD 39.5 fl (35.1-43.9); Red Blood Count 3.72 M/mm3 (4.2-5.4); White Blood Count 23.5 K/mm3 (4.4-11.0)
[2024-04-23 04:45] LABS: Differential Indicated SCAN CRITERIA MET
[2024-04-23 04:48] LABS: AST(SGOT) 12 U/L (15-37); Alanine Aminotransfer ALT/SGPT 11 U/L (13-56); Albumin, Serum 2.5 g/dL (3.2-5.0); Alkaline Phosphatase 95 U/L (45-117); Anion Gap 6 (5-15); BUN 15 mg/dL (7-18); BUN/Creat Ratio 13.8 RATIO (10-20); Bilirubin, Direct 0.17 mg/dL (0.00-0.30); Calcium,Total 8.1 mg/dL (8.5-10.1); Chloride 108 mmol/L (98-107); Creatinine, Serum 1.09 mg/dL (0.55-1.02); EST Glomerular Filtration Rate 53 mL/min (>60); Est Glom Filt Rate - Afr Amer 64 mL/min (>60); Estimated Creatinine Clearance 38.71 ml/min; Globulin 3.3 g/dL (2.2-4.2); Glucose 101 mg/dL (74-106); Potassium 2.8 mmol/L (3.5-5.1); Protein, Total 5.8 g/dL (6.4-8.2); Sodium Level 136 mmol/L (136-145)
[2024-04-23 05:27] LABS: Differential Comment SCANNED
[2024-04-23] MEDS: Piperacil/Tazobactam 3.375 GM in 0.9% Normal Saline (50mL MB+) 50 ML IV ×3 (05:58→21:32)
[2024-04-23] MEDS: Lactobacillis Acidophilus 1 CAP PO ×3 (05:59→21:28)
[2024-04-23 06:08] LABS: Bedside Glucose 91 mg/dL (74-106)
[2024-04-23 06:08] LABS: Bedside Glucose 81 mg/dL (74-106)
--- NOTE | 2024-04-23 06:32 | PCM.HOSP.N ---
Hospitalist Note AG closed, bicarb appropriate, nausea abating. Will transition to clears, accu check ISS q 6, add low dose glargine 5 u BID until HgbA1c results as overlap, d/c insulin drip.
[2024-04-23] MEDS: Insulin Glargine-YFGN 100 UNIT/ML Pen SC ×2 (08:19→21:32)
[2024-04-23 08:28] LABS: Hemoglobin A1c 7.2 % (3.8-5.6)
[2024-04-23 09:00] LABS: Bedside Glucose 202 mg/dL (74-106)
[2024-04-23] MEDS: Carvedilol 25 MG Tablet PO ×2 (11:02→21:30)
[2024-04-23] MEDS: Aspirin 81 MG TAB.CHEW PO (11:02)
[2024-04-23] MEDS: Enoxaparin 30 MG/0.3 ML Syringe SC ×2 (11:02→21:35)
[2024-04-23 11:52] LABS: Bedside Glucose 152 mg/dL (74-106)
[2024-04-23] MEDS: DULoxetine Hcl 60 MG Capsule PO ×2 (12:06→21:31)
[2024-04-23] MEDS: Allopurinol 100 MG Tablet PO (12:06)
--- NOTE | 2024-04-23 13:50 | CM.UR ---
Addendum entered by Jessie Choudhury 04/23/24 15:46: Pt sitting up in chair. RN CM spoke w/pt again re: any discharge needs. Pt states she is still feeling weak, but she states once she starts feeling better she does not anticipate any need for HHC. She was made aware to ask for CM if any needs arise. Original Note: RN CM [employer] CM?to room to meet with patient for initial transition planning/care coordination assessment. RN CM?introduced self and role at [facility]. Pt voices understanding and consents to assessment?at this time. Pt resting in bed in no distress at this time. Pt is A/O at this time and answers all questions appropriately. Care providers, pharmacy, and demographics verified/updated at this time. Strata:?1 PCP: Pt has PCP in [place], [place], Dr Klein (pt not sure on spelling). Specialists: none Preferred Pharmacy: [facility] @ [place]. Insurance: [email or web address] Prescription Benefit: yes LNOK: 5 adult children. Daughter, Andreia. SisterSheree Living Arrangements: Lives w/her daughter in [place]. Was in [place], [place] to visit her sister. Indep @ baseline. Plans to discharge to her sister and bro-in-law's home in [place] @ [place] and plans to stay w/them for about 3 weeks (as original plan was to visit this long). Sister's home is [facility] w/a couple steps to enter. Transportation:?Pt does not drive. She flew to [place] to visit sister. Sister can pick her up @ discharge. DME: Pt states she owns a glucometer, but she is not sure if she brought it w/her to [place]. She was made aware a script can be provided to her @ discharge, so if she does not have it in [place] she can try to get another one through her insurance. Made aware of OTC options to purchase a glucometer, if it's too soon for insurance to cover another one. Pt states she could afford to purchase one OTC, if needed. She is not on insulin, but states would be willing to learn how to administer, if needed @ dc. She does not have a pulse ox and states she can afford to purchase one OTC. No home O2. Pt currently on RA. It is not anticipated pt will need O2 @ discharge, but she states if she does, she has no preference of DME co. RN RUSSEL spoke w/staff @ [facility]. Their corporate office is [facility], which does service [place], [place], where pt lives, so if pt would need O2 @ dc, [facility] would set up in on [place], [place], and pt could return O2 equipment either to [facility] in [place], [place], if she is off of it by the time she returns to [place] or she could return it to [facility] in [place], if needed. HHC/SNF: No hx of either. Pt states at this point I am not sure what I am going to need, stating she is feeling so weak and tired at the moment, she cannot make that decision. PT/OT evals pending. Pt wishes to return to her sister and bro-in-law's home in [place] and is not sure if she'll have any needs at discharge at this time. CM?to follow for home oxygen needs and any further discharge planning/needs. PLAN: Home w/sister and bro-in-law. Follow for possible O2 @ discharge. Pt to be provided w/script for glucometer @ dc. Follow therapy and any additional needs pt may have. aDvid VARGAS RN, CM
--- NOTE | 2024-04-23 13:56 | PCMCONS.TICU ---
HPI Consult Data Date of Consult: 04/23/24 HPI Narrative HPI Narrative: GENESIS RIOS, is a 73 F who presents [facility] Medical History (Updated 04/23/24 @ 14:[address] Alberta Hernández MD) Iron deficiency anemia Chronic anemia GERD (gastroesophageal reflux disease) History of Clostridium difficile colitis Former tobacco use HTN (hypertension) HLD (hyperlipidemia) CKD (chronic kidney disease), stage III Diabetes mellitus, type 2 CAD (coronary artery disease) Heart failure Myocardial infarct Home Medications ?Medication ?Instructions ?Recorded ?Last Taken ?Type allopurinol 100 mg tablet 100 mg PO DAILY 04/22/24 04/21/24 History aspirin 81 mg capsule 81 mg PO DAILY 04/22/24 04/21/24 History carvedilol 25 mg tablet 25 mg PO BID 04/22/24 04/21/24 History clopidogrel 75 mg tablet 75 mg PO QHS 04/22/24 04/21/24 History duloxetine 60 mg capsule,delayed 60 mg PO BID 04/22/24 04/21/24 History release ergocalciferol (vitamin D2) 1,250 1,250 mcg PO QWEEK 04/22/24 04/21/24 History mcg (50,000 unit) capsule ferrous sulfate 325 mg (65 mg 325 mg PO QHS 04/22/24 04/21/24 History iron) tablet (FeroSul) gabapentin 600 mg tablet 600 mg PO QHS 04/22/24 04/21/24 History linagliptin 5 mg tablet (Tradjenta) 5 mg PO DAILY 04/22/24 04/21/24 History ondansetron 4 mg disintegrating 4 mg PO Q6H PRN PRN nausea/vomiting 04/22/24 Unknown History tablet pantoprazole 40 mg tablet,delayed 40 mg PO DAILY 04/22/24 04/21/24 History release quetiapine 50 mg tablet 50 mg PO QHS 04/22/24 04/21/24 History rosuvastatin 40 mg tablet 40 mg PO QHS 04/22/24 04/21/24 History tizanidine 6 mg capsule 6 mg PO QHS 04/22/24 04/21/24 History Allergy/AdvReac Type Severity Reaction Status Date / Time No Known Allergies Allergy Verified 04/22/24 16:02 Family History (Updated 04/22/24 @ 20:[address] Jordyn Queen MD) Mother Heart disease Hypertension Heart failure Family History other Surgical History (Updated 04/22/24 @ 20:[address] Jordyn Queen MD) S/P tonsillectomy and adenoidectomy S/P cholecystectomy History of bladder surgery History of hysterectomy Hx of coronary angioplasty Social History (Updated 04/22/24 @ 20:[address] Jordyn Queen MD) household members: other details: Visiting sister in [facility]. She lives in [place]. Smoking Status: Former smoker how long ago did patient quit smoking: Quit 5-6 years prior, smoked 1 ppd since teen until quit. alcohol intake: never substance use type: marijuana Objective Data Objective Data Vital Signs: Vital Signs Last response Temperature 36.0 C L 04/23/24 12:00 Temperature Source Temporal 04/23/24 12:00 Pulse Rate 75 04/23/24 12:00 Pulse Strength Normal (2+) 04/23/24 10:00 Respiratory Rate 19 H 04/23/24 12:00 Respiratory Effort Normal, Non-Labored 04/23/24 02:00 Respiratory Depth Normal 04/23/24 02:00 Respiratory Pattern Normal 04/23/24 02:00 Blood Pressure 126/65 H 04/23/24 12:00 Blood Pressure Mean 85 04/23/24 12:00 Blood Pressure Source Monitor 04/23/24 12:00 Blood Pressure Position Semi-Fowlers 04/23/24 12:00 Blood Pressure Location Right Arm 04/23/24 12:00 Pulse Ox 99 04/23/24 12:00 Oxygen Delivery Method Room Air 04/23/24 12:00 Oxygen Flow Rate (L/min) 4 04/23/24 11:00 Fraction of Inspired Oxygen (FIO2) 4 04/23/24 09:00 I&O: I&O Last 24 Hours 04/22/24 04/23/24 04/23/24 23:59 11:59 23:59 Intake Total 2259.38 / 2259.38 Output Total 0 / 0 Balance 2259.38 / 2259.38 I&O: Total Stay 04/22/24 16:00 thru 04/23/24 12:11 Intake Total 4319.63 Output Total 0 Balance 4319.63 Current Meds Ordered / Administered: Current meds ordered / Administered Generic Name Dose Route Start Last Admin Trade Name Freq PRN Reason Stop Dose Admin Acetaminophen 650 mg 04/22/24 23:27 Acetaminophen 325 Mg Tablet PO Q4H PRN PRN Fever, pain 1-10/10 Acetaminophen 650 mg 04/22/24 23:27 Acetaminophen 650 Mg Suppository RC Q4H PRN PRN Fever, pain 1-10 Al Hydrox/Mg Hydrox/Simethicone 30 ml 04/22/24 23:27 Mag /Aluminum/Simeth Wch Udc 30 Ml Oral.Susp PO Q6H PRN PRN Gastric Burning Albuterol Sulfate 2.5 mg 04/22/24 23:27 Albuterol 2.5 Mg/3 Ml Vial.Neb. INHALATION Q2H PRN PRN Dyspnea, wheezing Allopurinol 100 mg 04/23/24 10:00 04/23/24 12:06 Allopurinol 100 Mg Tablet PO 100 mg DAILY CHRISTOS Administration Aspirin 81 mg 04/23/24 08:00 04/23/24 11:02 Aspirin 81 Mg Tab.Chew PO 81 mg DAILY CHRISTOS Administration Atorvastatin Calcium 80 mg 04/22/24 23:45 04/23/24 01:54 Atorvastatin Calcium 80 Mg Tablet PO Not Given QHS CHRISTOS Carvedilol 25 mg 04/22/24 23:27 04/23/24 11:02 Carvedilol 25 Mg Tablet PO 25 mg BID CHRISTOS Administration Protocol Clopidogrel Bisulfate 75 mg 04/22/24 23:27 04/23/24 01:54 Clopidogrel Bisulfate 75 Mg Tablet PO Not Given QHS CHRISTOS Duloxetine HCl 60 mg 04/22/24 23:27 04/23/24 12:06 Duloxetine Hcl 60 Mg Capsule PO 60 mg BID CHRISTOS Administration Enoxaparin Sodium 30 mg 04/22/24 23:27 04/23/24 11:02 Enoxaparin 30 Mg/0.3 Ml Syringe SC 30 mg BID CHRISTOS Administration Ferrous Sulfate 325 mg 04/22/24 23:27 04/23/24 01:54 Ferrous Sulfate 325 Mg Tablet PO Not Given QHS CHRISTOS Gabapentin 600 mg 04/22/24 23:27 04/23/24 01:54 Gabapentin 600 Mg Tablet PO Not Given QHS CHRISTOS Glucagon 1 mg 04/23/24 06:30 Glucagon 1 Mg/Ml Syringe IM X1 PRN Hypoglycemia Protocol Guaifenesin 10 ml 04/22/24 23:27 Guaifenesin 10 Ml Udc (200mg/10ml) PO Q4H PRN PRN COUGH Hydralazine HCl 10 mg 04/22/24 23:27 Hydralazine 20 Mg/Ml Vial IV Q4H PRN PRN SBP > 160 Protocol Piperacillin Sod/Tazobactam 50 mls @ 12.5 mls/hr 04/23/24 06:00 04/23/24 11:03 Sod 3.375 gm/ Sodium Chloride IV Infused Q8 CHRISTOS Infusion Pantoprazole Sodium 40 mg/ 110 mls @ 330 mls/hr 04/22/24 23:27 04/23/24 11:20 Sodium Chloride IV Infused Q12 CHRISTOS Infusion Dextrose 250 mls @ 999 mls/hr 04/22/24 23:27 Dextrose 10%-Water IV .Q16M PRN Hypoglycemic Protocol Protocol Remdesivir 100 mg/ Sodium 250 mls @ 250 mls/hr 04/23/24 22:00 Chloride IV 04/26/24 22:59 Q24H CHRISTOS Protocol Sodium Chloride 250 mls @ 15 mls/hr 04/23/24 00:05 04/23/24 08:26 IV 0 mls/hr .[id number] PRN Infusion Additional IVPB Infusion Sodium Chloride 250 mls @ 15 mls/hr 04/23/24 00:05 IV .[id number] PRN Saline Flush Dextrose 250 mls @ 0 mls/hr 04/23/24 06:30 Dextrose 10%-Water IV .Q0M PRN HYPOGLYCEMIA Protocol As Directed Influenza Virus Vaccine 180 mcg 04/24/24 10:00 Flu Vaccine High Dose Tv 24-25 180 Mcg/0.5 Ml Syringe IM 04/24/24 10:01 .ONCE ONE Insulin Glargine 5 unit 04/23/24 06:31 04/23/24 08:19 Insulin Glargine-Yfgn 100 Unit/Ml Pen SC 5 unit BID CHRISTOS Administration Insulin Human Lispro 0 unit 04/23/24 16:00 Insulin Lispro 100 Unit/Ml Insuln.Pen SC [facility] Protocol Loperamide HCl 2 mg 04/22/24 23:27 Loperamide 2 Mg Capsule PO Q2H PRN PRN DI Melatonin 3 mg 04/22/24 23:27 Melatonin 3 Mg Tablet PO QHS PRN PRN INSOMNIA Morphine Sulfate 2 mg 04/22/24 23:27 Morphine 2 Mg/Ml Syringe IV Q4H PRN PRN severe pain 6-10 Ondansetron HCl 4 mg 04/22/24 23:27 04/23/24 00:07 Ondansetron 4 Mg/2 Ml Vial IV 4 mg Q8H PRN PRN Administration NAUSEA/VOMITING Prochlorperazine Edisylate 5 mg 04/22/24 23:27 Prochlorperazine 10 Mg/2 Ml Vial IV Q4H PRN PRN Breakthrough Nausea/Vomiting Quetiapine Fumarate 50 mg 04/22/24 23:45 04/23/24 01:55 Quetiapine 25 Mg Tablet PO Not Given QHS CHRISTOS Sodium Chloride 10 - 40 ml 04/23/24 00:05 04/23/24 00:40 0.9% Saline Lock 10 Ml Syringe IV 30 ml UD PRN Administration SALINE FLUSH Lab / Micro Data 04/23/24 04:15 04/23/24 04:15 Labs: Laboratory Results - last 24 hr 04/22/24 16:10: WBC 24.2 H, RBC 4.54, Hgb 12.9, Hct 37.7, MCV 83.0, MCH 28.4, MCHC 34.2, RDW Std Deviation 39.8, RDW Coeff of Mary 13.2, Plt Count 269, MPV 10.5, Immature Gran % (Auto) 0.800, Neut % (Auto) 90.9 H, Lymph % (Auto) 3.9 L, [place] % (Auto) 3.7, Eos % (Auto) 0.4, Baso % (Auto) 0.3, Absolute Neuts (auto) 22.1 H, Absolute Lymphs (auto) 0.94, Nucleated RBC % 0, Differential Comment SCANNED, ESR Cancelled, D-Dimer Quant (PE/DVT) 2.33 H*, Sodium 134 L, Potassium 3.0 L, Chloride 99, Carbon Dioxide 19.0 L, Anion Gap 16 H, BUN 19 H, Creatinine 1.67 H, Estim Creat Clear Calc 25.27, Est GFR (MDRD) Af Amer 39 L, Est GFR (MDRD) Non-Af 32 L, BUN/Creatinine Ratio 11.4, Glucose 221 H, Calcium 9.3, Phosphorus 3.3, Magnesium 1.7 04/22/24 16:10: Magnesium 1.8, Ferritin 699 H, Total Bilirubin 0.80, AST 8 L, ALT 12 L, Alkaline Phosphatase 122 H, Lactate Dehydrogenase 214, Total Creatine Kinase 26, C-React Prot Ext Range 254.00 H, B-Natriuretic Peptide 23.6, Total Protein 7.0, Albumin 3.0 L, Globulin 4.0, Albumin/Globulin Ratio 0.8 L, Lipase 15 04/22/24 17:09: Lactic Acid 1.3 04/22/24 19:40: Procalcitonin 0.23 H, Acetone Level MODERATE H 04/22/24 20:00: Urine Color Yellow, Urine Clarity Clear, Urine pH 6.0, Ur Specific [place] 1.015, Urine Protein 30 H, Urine Glucose (UA) 1000 H, Urine Ketones 50 H, Urine Occult Blood 25 H, Urine Nitrite Negative, Urine Bilirubin Negative, Urine Urobilinogen Normal, Ur Leukocyte Esterase Negative, Urine RBC 0-5 SEEN, Urine WBC 0-5 SEEN, Ur Squamous Epith Cells 5-10 SEEN, Urine Bacteria 0 SEEN, Urine Mucus 0 SEEN 04/22/24 20:34: POC Glucose 223 H 04/22/24 21:45: POC Glucose 199 H 04/22/24 23:07: POC Glucose 169 H 04/22/24 23:45: Sodium 136, Potassium 3.2 L, Chloride 106, Carbon Dioxide 18.0 L, Anion Gap 12, BUN 18, Creatinine 1.56 H, Estim Creat Clear Calc 27.05, Est GFR (MDRD) Af Amer 42 L, Est GFR (MDRD) Non-Af 35 L, BUN/Creatinine Ratio 11.5, Glucose 132 H, Calcium 8.4 L 04/23/24 00:11: POC Glucose 121 H 04/23/24 00:59: POC Glucose 100 04/23/24 02:14: POC Glucose 108 H 04/23/24 03:01: POC Glucose 81 04/23/24 04:11: POC Glucose 91 04/23/24 04:15: WBC 23.5 H, RBC 3.72 L, Hgb 10.7 L, Hct 30.8 L, MCV 82.8, MCH 28.8, MCHC 34.7, RDW Std Deviation 39.5, RDW Coeff of Mary 13.1, Plt Count 232, MPV 9.6, Immature Gran % (Auto) 0.700, Neut % (Auto) 88.5 H, Lymph % (Auto) 4.5 L, [place] % (Auto) 5.6, Eos % (Auto) 0.5, Baso % (Auto) 0.2, Absolute Neuts (auto) 20.8 H, Absolute Lymphs (auto) 1.07, Nucleated RBC % 0, Differential Comment SCANNED, Sodium 136, Potassium 2.8 L, Chloride 108 H, Carbon Dioxide 22.0, Anion Gap 6, BUN 15, Creatinine 1.09 H, Estim Creat Clear Calc 38.71, Est GFR (MDRD) Af Amer 64, Est GFR (MDRD) Non-Af 53 L, BUN/Creatinine Ratio 13.8, Glucose 101, Hemoglobin A1c 7.2 H, Calcium 8.1 L, Total Bilirubin 0.30, Direct Bilirubin 0.17, AST 12 L, ALT 11 L, Alkaline Phosphatase 95, Total Protein 5.8 L, Albumin 2.5 L, Globulin 3.3 04/23/24 05:52: POC Glucose 152 H 04/23/24 08:16: POC Glucose 202 H Micro: Microbiology 04/22/24 16:10 Mucosa - Nose SARS-CoV-2, Influenza & RSV (PCR) - Final SARS-CoV-2 (COVID 19 PCR) ABG Data ABG results: ABG 04/22/24 21:05 Specimen Type ABRAHAM Sample Site Not entered O2 % 21.0 VBG pH 7.28 L VBG pO2 52 H VBG HCO3 19 L VBG Total CO2 20 L VBG O2 Sat (Calc) 82 H VBG Base Excess -8 L POC Mix VBG pCO2 Pt Tmp 39.6 L O2 Delivery Device Not entered Imaging Radiology Impression Abdomen/Pelvis CT 04/22/24 17:02 IMPRESSION: Severe nonspecific pancolitis. Electronically Signed: Bartolome Moseley MD at 18:25 EDT , Assessment and Plan . Assessment and plan: Chart and data reviewed Current condition d/w staff No current CC needs
[2024-04-23 14:30] LABS: Bedside Glucose 171 mg/dL (74-106)
--- NOTE | 2024-04-23 14:43 | PN_ITS ---
Subjective Subjective Patient seen and examined. She felt frail. denied any fever, chills, palpitations, dizziness, nausea, vomiting or any other symptoms. She had DKA on admission, but is now out of DKA. She is hemodynamically stable. Objective Data Objective Data Vital Signs: Vital Signs Temp Pulse Resp BP Pulse Ox O2 Del Method O2 Flow Rate 96.8 F L 75 19 H 126/65 H 99 Room Air 4 04/23/24 12:00 04/23/24 12:00 04/23/24 12:00 04/23/24 12:00 04/23/24 12:00 04/23/24 12:00 04/23/24 11:00 FiO2 4 04/23/24 09:00 Oxygen Flow Rate (L/min) 4 Oxygen Delivery Method Room Air Weight: 133 lb 2.547 oz Body Mass Index (BMI) 25.1 Intake & Output: Intake and Output for Last 24 Hours 04/21/24 04/22/24 04/23/24 23:59 23:59 23:59 Intake Total 2259.38 / 2259.38 2160.25 / 2160.25 Output Total 0 / 0 Balance 2259.38 / 2259.38 2160.25 / 2160.25 Lab / Micro Data 04/23/24 04:15 04/23/24 04:15 Labs: Laboratory Results - last 24 hr 04/22/24 16:10: WBC 24.2 H, RBC 4.54, Hgb 12.9, Hct 37.7, MCV 83.0, MCH 28.4, MCHC 34.2, RDW Std Deviation 39.8, RDW Coeff of Mary 13.2, Plt Count 269, MPV 10.5, Immature Gran % (Auto) 0.800, Neut % (Auto) 90.9 H, Lymph % (Auto) 3.9 L, [place] % (Auto) 3.7, Eos % (Auto) 0.4, Baso % (Auto) 0.3, Absolute Neuts (auto) 22.1 H, Absolute Lymphs (auto) 0.94, Nucleated RBC % 0, Differential Comment SCANNED, ESR Cancelled, D-Dimer Quant (PE/DVT) 2.33 H*, Sodium 134 L, Potassium 3.0 L, Chloride 99, Carbon Dioxide 19.0 L, Anion Gap 16 H, BUN 19 H, Creatinine 1.67 H, Estim Creat Clear Calc 25.27, Est GFR (MDRD) Af Amer 39 L, Est GFR (MDRD) Non-Af 32 L, BUN/Creatinine Ratio 11.4, Glucose 221 H, Calcium 9.3, Phosphorus 3.3, Magnesium 1.7 04/22/24 16:10: Magnesium 1.8, Ferritin 699 H, Total Bilirubin 0.80, AST 8 L, A LT 12 L, Alkaline Phosphatase 122 H, Lactate Dehydrogenase 214, Total Creatine Kinase 26, C-React Prot Ext Range 254.00 H, B-Natriuretic Peptide 23.6, Total Protein 7.0, Albumin 3.0 L, Globulin 4.0, Albumin/Globulin Ratio 0.8 L, Lipase 15 04/22/24 17:09: Lactic Acid 1.3 04/22/24 19:40: Procalcitonin 0.23 H, Acetone Level MODERATE H 04/22/24 20:00: Urine Color Yellow, Urine Clarity Clear, Urine pH 6.0, Ur Specific [place] 1.015, Urine Protein 30 H, Urine Glucose (UA) 1000 H, Urine Ketones 50 H, Urine Occult Blood 25 H, Urine Nitrite Negative, Urine Bilirubin Negative, Urine Urobilinogen Normal, Ur Leukocyte Esterase Negative, Urine RBC 0-5 SEEN, Urine WBC 0-5 SEEN, Ur Squamous Epith Cells 5-10 SEEN, Urine Bacteria 0 SEEN, Urine Mucus 0 SEEN 04/22/24 20:34: POC Glucose 223 H 04/22/24 21:45: POC Glucose 199 H 04/22/24 23:07: POC Glucose 169 H 04/22/24 23:45: Sodium 136, Potassium 3.2 L, Chloride 106, Carbon Dioxide 18.0 L , Anion Gap 12, BUN 18, Creatinine 1.56 H, Estim Creat Clear Calc 27.05, Est GFR (MDRD) Af Amer 42 L, Est GFR (MDRD) Non-Af 35 L, BUN/Creatinine Ratio 11.5, G lucose 132 H, Calcium 8.4 L 04/23/24 00:11: POC Glucose 121 H 04/23/24 00:59: POC Glucose 100 04/23/24 02:14: POC Glucose 108 H 04/23/24 03:01: POC Glucose 81 04/23/24 04:11: POC Glucose 91 04/23/24 04:15: WBC 23.5 H, RBC 3.72 L, Hgb 10.7 L, Hct 30.8 L, MCV 82.8, MCH 28.8, MCHC 34.7, RDW Std Deviation 39.5, RDW Coeff of Mary 13.1, Plt Count 232, MPV 9.6, Immature Gran % (Auto) 0.700, Neut % (Auto) 88.5 H, Lymph % (Auto) 4.5 L, [place] % (Auto) 5.6, Eos % (Auto) 0.5, Baso % (Auto) 0.2, Absolute Neuts (auto) 20.8 H, Absolute Lymphs (auto) 1.07, Nucleated RBC % 0, Differential Comment SCANNED, Sodium 136, Potassium 2.8 L, Chloride 108 H, Carbon Dioxide 22.0, Anion Gap 6, BUN 15, Creatinine 1.09 H, Estim Creat Clear Calc 38.71, Est GFR (MDRD) Af Amer 64, Est GFR (MDRD) Non-Af 53 L, BUN/Creatinine Ratio 13.8, Glucose 101, Hemoglobin A1c 7.2 H, Calcium 8.1 L, Total Bilirubin 0.30, Direct Bilirubin 0.17, AST 12 L, ALT 11 L, Alkaline Phosphatase 95, Total Protein 5.8 L, Albumin 2.5 L, Globulin 3.3 04/23/24 05:52: POC Glucose 152 H 04/23/24 08:16: POC Glucose 202 H 04/23/24 12:05: POC Glucose 171 H Micro: Microbiology 04/22/24 16:10 Mucosa - Nose SARS-CoV-2, Influenza & RSV (PCR) - Final SARS-CoV-2 (COVID 19 PCR) ABG Data ABG results: ABG 04/22/24 21:05 Specimen Type ABRAHAM Sample Site Not entered O2 % 21.0 VBG pH 7.28 L VBG pO2 52 H VBG HCO3 19 L VBG Total CO2 20 L VBG O2 Sat (Calc) 82 H VBG Base Excess -8 L POC Mix VBG pCO2 Pt Tmp 39.6 L O2 Delivery Device Not entered Radiography Diagnostic Testing: Radiology Impression Abdomen/Pelvis CT 04/22/24 17:02 IMPRESSION: Severe nonspecific pancolitis. Electronically Signed: Bartolome Moseley MD at 18:25 EDT , Physical Exam Const alert, oriented x3 and no apparent distress Constitutional Narrative: frail General Appearance: cooperative HEENT normocephalic, head/scalp atraumatic and moist oral mucous membranes Eyes PERRL and EOMs intact bilaterally Neck no lymphadenopathy, supple and no JVD Lymph Lymphatic: no lymphadenopathy noted and no lymphedema noted Resp normal respiratory effort, normal air movement and clear to auscultation bilaterally Cardio regular rate, regular rhythm, S1 normal heart sound, S2 normal heart sound and no murmurs GI normal to inspection, nondistended, normoactive bowel sounds, soft to palpation, non-tender and non-distended Extremity normal capillary refill, no clubbing, cyanosis or edema and no calf tenderness General Extremity: no tenderness to palpation of joints or extremities Skin General Skin Exam: no breakdown Neuro CN's II-XII intact bilaterally, no focal motor deficits, no sensory deficits noted and deep tendon reflexes 2+ bilaterally Motor Exam: general weakness Psych thought process normal, cooperative and affect normal Appearance: appropriate Assessment & Plan Assessment/Plan (1) Nausea vomiting and diarrhea: (2) COVID-19: (3) DKA (diabetic ketoacidoses): PLAN: Plan #DKA in a known diabetic * resolved. Blood sugar was elevated on admission * was on insulin drip, but has now come of insulin drip * now on SQ lantus. ISS> Accuchecks ACHS * A1C is 7.2 * on linagliptin. * #Hypokalemia: K is 2.8. Will replace aggressively and trend. #Acute colitis * admitted with intractable nausea, vomiting and diarrhea. * CT abdomen showed pancolitis. * Now improving, feels better * on IV zosyn * blood cultures. * hydrate gently with iVF * #AYDEN: Cr is 1.09. Was 1.67 on admission. Will dc IVF and continue trending Cr. #COVID 19 infection * on room air. On IV remdesivr and decadron. * breathing treatment with bronchodilators * #Hyponatremia:resolved. Sodium is 136 today. Will monitor #CAD s/p stents x 2: on aspirin, plavix and high intensity statin as well as coreg. #Hypertension; on coreg. IV hydralazine prn #GERD: on PPI #ANxiety and depression; on seroquel and duloxetine #Histoyr of gout: on allopurinol DVT prophylaxis: lovenox bid. Charges/Coding Visit Charges Inpatient E&M: 22605 Subs Hosp L2
[2024-04-23] MEDS: Insulin Lispro 100 UNIT/ML INSULN.PEN SC (17:23)
--- NOTE | 2024-04-23 20:13 | PCM.HOSP.N ---
Hospitalist Note C-diff resulted positive, does have prior history, continue lactobacillus regimen, adding oral vanc. Will need to re-assess for IV zosyn d/c.
[2024-04-23] MEDS: QUEtiapine 25 MG Tablet 50 MG PO (21:28)
[2024-04-23] MEDS: Vancomycin HCl 250 MG Capsule 500 MG PO (21:28)
[2024-04-23] MEDS: Atorvastatin Calcium 80 MG Tablet PO (21:28)
[2024-04-23] MEDS: Gabapentin 600 MG Tablet PO (21:31)
[2024-04-23] MEDS: Clopidogrel Bisulfate 75 MG Tablet PO (21:31)
[2024-04-23] MEDS: Ferrous Sulfate 325 MG Tablet PO (21:31)
[2024-04-23] MEDS: Remdesivir 100 MG in 0.9% Normal Saline (250mL Bag) 230 ML 250 MG IV (21:49)
[2024-04-23 22:21] LABS: Bedside Glucose 160 mg/dL (74-106)
[2024-04-23 22:21] LABS: Bedside Glucose 155 mg/dL (74-106)
[2024-04-24] VITALS (21 sets, daily range): BP systolic 85–145; BP diastolic 51–85; PULSE 61–77; RESP 16–23; TEMP 36.6–36.8; O2SAT 96–100; BMI 24.0
[2024-04-24] MEDS: Vancomycin HCl 250 MG Capsule 500 MG PO ×5 (01:03→23:15)
[2024-04-24 04:45] LABS: Absolute Lymphocyte Count 2.22 X10^3/uL (0.83-4.51); Absolute Neutrophil Count 14.8 X10^3/uL (2.0-7.7); Basophil# 0.03 X10^3/uL; Basophil% 0.2 % (0-1); Eosinophil# 0.45 X10^3/uL; Eosinophils% 2.4 % (0-5); Hematocrit 29.2 % (37-47); Lymphocyte # 2.22 X10^3/ul (0.83-4.51); Mean Corp Hgb Conc 34.2 g/dL (32-36); Mean Corpuscular Hgb 28.2 pg (27.0-32.0); Mean Corpuscular Volume 82.5 fL (81-99); Mean Platelet Vol. 9.7 fl (6.2-12.0); Monocyte# 0.84 X10^3/uL; Monocyte% 4.5 % (0-10); NRBC Flagged by Analyzer 0 % (0-5); Neutrophil # 14.82 X10^3/uL (2.7-7.7); Platelet Count 241 K/mm3 (150-450); RBC Distribution Width CV 13.2 % (11.6-14.6); RBC Distribution Width SD 39.9 fl (35.1-43.9); Red Blood Count 3.54 M/mm3 (4.2-5.4); White Blood Count 18.5 K/mm3 (4.4-11.0)
[2024-04-24 05:05] LABS: ALB/GLOB Ratio 0.7 RATIO (0.9-2.4); AST(SGOT) 9 U/L (15-37); Alanine Aminotransfer ALT/SGPT 9 U/L (13-56); Albumin, Serum 2.3 g/dL (3.2-5.0); Alkaline Phosphatase 86 U/L (45-117); Anion Gap 9 (5-15); BUN 13 mg/dL (7-18); BUN/Creat Ratio 10.2 RATIO (10-20); Calcium,Total 8.2 mg/dL (8.5-10.1); Chloride 108 mmol/L (98-107); Creatinine, Serum 1.28 mg/dL (0.55-1.02); EST Glomerular Filtration Rate 44 mL/min (>60); Est Glom Filt Rate - Afr Amer 53 mL/min (>60); Estimated Creatinine Clearance 32.99 ml/min; Globulin 3.2 g/dL (2.2-4.2); Glucose 111 mg/dL (74-106); Protein, Total 5.5 g/dL (6.4-8.2); Sodium Level 137 mmol/L (136-145)
[2024-04-24] MEDS: Lactobacillis Acidophilus 1 CAP PO ×3 (05:38→23:17)
[2024-04-24] MEDS: 0.9% Saline Lock 10 ML Syringe IV (05:38)
[2024-04-24] MEDS: Piperacil/Tazobactam 3.375 GM in 0.9% Normal Saline (50mL MB+) 50 ML IV ×3 (05:38→23:13)
--- NOTE | 2024-04-24 06:58 | NURSING ---
0657- 20 mEq's IV KCL ordered per potassium replacement protocol ordered by Dr. Queen. Pt K 3.0.
[2024-04-24] MEDS: Potassium Chloride 10mEq/100mL 10 MEQ/100 ML IV.SOLN. 100 MEQ IV BOLUS ×2 (08:07→09:41)
[2024-04-24] MEDS: Aspirin 81 MG TAB.CHEW PO (08:10)
[2024-04-24] MEDS: Carvedilol 25 MG Tablet PO ×2 (08:10→23:17)
[2024-04-24] MEDS: Allopurinol 100 MG Tablet PO (08:10)
[2024-04-24] MEDS: FLU VACCINE **HIGH DOSE** TV 24-25 180 MCG/0.5 ML SYRINGE IM (08:11)
[2024-04-24] MEDS: Enoxaparin 30 MG/0.3 ML Syringe SC ×2 (08:11→23:15)
[2024-04-24] MEDS: DULoxetine Hcl 60 MG Capsule PO ×2 (08:14→23:16)
[2024-04-24] MEDS: Insulin Glargine-YFGN 100 UNIT/ML Pen SC ×2 (08:14→23:42)
--- NOTE | 2024-04-24 10:58 | PN_ITS ---
Subjective Subjective Patient seen and examined. She had no complaints today. She did develop diarrhea and C. difficile test came back positive. She is on p.o. vancomycin. She is on room air. Review of systems otherwise negative. Objective Data Objective Data Vital Signs: Vital Signs Temp Pulse Resp BP Pulse Ox O2 Del Method O2 Flow Rate 97.9 F 71 16 128/66 H 98 Room Air 4 04/24/24 09:00 04/24/24 09:57 04/24/24 09:57 04/24/24 09:57 04/24/24 09:57 04/24/24 09:57 04/23/24 11:00 FiO2 4 04/23/24 09:00 Oxygen Flow Rate (L/min) 4 Oxygen Delivery Method Room Air Weight: 127 lb 10.362 oz Body Mass Index (BMI) 24.0 Intake & Output: Intake and Output for Last 24 Hours 04/22/24 04/23/24 04/24/24 23:59 23:59 23:59 Intake Total 2259.38 / 2259.38 2670.25 / 2670.25 300 / 300 Output Total 0 / 0 0 / 0 Balance 2259.38 / 2259.38 2670.25 / 2670.25 300 / 300 Lab / Micro Data 04/24/24 04:35 04/24/24 04:35 Labs: Laboratory Results - last 24 hr 04/23/24 05:52: POC Glucose 152 H 04/23/24 12:05: POC Glucose 171 H 04/23/24 17:19: POC Glucose 160 H 04/23/24 21:14: POC Glucose 155 H 04/24/24 04:35: WBC 18.5 H, RBC 3.54 L, Hgb 10.0 L, Hct 29.2 L, MCV 82.5, MCH 28.2, MCHC 34.2, RDW Std Deviation 39.9, RDW Coeff of Mary 13.2, Plt Count 241, MPV 9.7, Immature Gran % (Auto) 0.900, Neut % (Auto) 80.0 H, Lymph % (Auto) 12.0 L, [place] % (Auto) 4.5, Eos % (Auto) 2.4, Baso % (Auto) 0.2, Absolute Neuts (auto) 14.8 H, Absolute Lymphs (auto) 2.22, Nucleated RBC % 0, Sodium 137, Potassium 3.0 L, Chloride 108 H, Carbon Dioxide 20.0 L, Anion Gap 9, BUN 13, Creatinine 1.28 H, Estim Creat Clear Calc 32.99, Est GFR (MDRD) Af Amer 53 L, Est GFR (MDRD) Non-Af 44 L, BUN/Creatinine Ratio 10.2, Glucose 111 H, Calcium 8.2 L, Total Bilirubin 0.30, AST 9 L, ALT 9 L, Alkaline Phosphatase 86, Total Protein 5.5 L, Albumin 2.3 L, Globulin 3.2, Albumin/Globulin Ratio 0.7 L Micro: Microbiology 04/23/24 16:00 Stool C. difficile GDH Antigen & Toxins - Final Toxigenic C. difficile 04/23/24 16:00 Stool Clostridioides difficile (PCR) - Final 04/22/24 16:10 Mucosa - Nose SARS-CoV-2, Influenza & RSV (PCR) - Final SARS-CoV-2 (COVID 19 PCR) Physical Exam Const alert, oriented x3 and no apparent distress Constitutional Narrative: frail General Appearance: cooperative HEENT normocephalic, head/scalp atraumatic and moist oral mucous membranes Eyes PERRL and EOMs intact bilaterally Neck no lymphadenopathy, supple and no JVD Lymph Lymphatic: no lymphadenopathy noted and no lymphedema noted Resp normal respiratory effort, normal air movement and clear to auscultation bilaterally Cardio regular rate, regular rhythm, S1 normal heart sound, S2 normal heart sound and no murmurs GI normal to inspection, nondistended, normoactive bowel sounds, soft to palpation, non-tender and non-distended Extremity normal capillary refill, no clubbing, cyanosis or edema and no calf tenderness General Extremity: no tenderness to palpation of joints or extremities Skin General Skin Exam: no breakdown Neuro CN's II-XII intact bilaterally, no focal motor deficits, no sensory deficits noted and deep tendon reflexes 2+ bilaterally Motor Exam: general weakness Psych thought process normal, cooperative and affect normal Appearance: appropriate Assessment & Plan Assessment/Plan (1) Nausea vomiting and diarrhea: (2) COVID-19: (3) DKA (diabetic ketoacidoses): PLAN: Plan #DKA in a known diabetic * resolved. Blood sugar was elevated on admission * was on insulin drip, but has now come of insulin drip * now on SQ lantus. ISS> Accuchecks ACHS * A1C is 7.2 * on linagliptin. * #Hypokalemia: K is 3 today. Will replace aggressively and trend. #Acute colitis due to C Diff * admitted with intractable nausea, vomiting and diarrhea. * CT abdomen showed pancolitis. * Now improving, feels better. She is still having diarrhea * on IV zosyn * on PO vancomycin. Will dc IV zosyn * #AYDEN: * Cr today is slightly up to 1.29 from 1.09 on admission. * Cr is 1.09. Was 1.67 on admission. * she is also having diarrhea, so will hydrate gently with iVF. * bicarb is also 20 and he has very mild anion gap metabolic acidosis #COVID 19 infection * on room air. On IV remdesivr and decadron. * breathing treatment with bronchodilators * #Hyponatremia:resolved. #CAD s/p stents x 2: on aspirin, plavix and high intensity statin as well as coreg. #Hypertension; on coreg. IV hydralazine prn #GERD: on PPI #ANxiety and depression; on seroquel and duloxetine #Histoyr of gout: on allopurinol DVT prophylaxis: lovenox bid. Charges/Coding Visit Charges Inpatient E&M: 49591 Subs Hosp L2
[2024-04-24] MEDS: Pantoprazole Sodium 40 MG in 0.9% Normal Saline (100mL MB+) 100 ML 330 MG IV ×2 (11:46→23:11)
[2024-04-24] MEDS: Insulin Lispro 100 UNIT/ML INSULN.PEN SC (11:46)
[2024-04-24] MEDS: 0.9% Normal Saline (1000mL) 1,000 ML 125 ML IV ×2 (11:47→19:51)
[2024-04-24 11:52] LABS: Bedside Glucose 196 mg/dL (74-106)
[2024-04-24 17:05] LABS: Bedside Glucose 132 mg/dL (74-106)
[2024-04-24] MEDS: Clopidogrel Bisulfate 75 MG Tablet PO (23:16)
[2024-04-24] MEDS: Ferrous Sulfate 325 MG Tablet PO (23:16)
[2024-04-24] MEDS: QUEtiapine 25 MG Tablet 50 MG PO (23:16)
[2024-04-24] MEDS: Gabapentin 600 MG Tablet PO (23:17)
[2024-04-24] MEDS: Atorvastatin Calcium 80 MG Tablet PO (23:17)
[2024-04-24] MEDS: Remdesivir 100 MG in 0.9% Normal Saline (250mL Bag) 230 ML 250 MG IV (23:38)
[2024-04-25 03:37] VITALS: BP 152/67; PULSE 64; RESP 16; TEMP 36.2; O2SAT 98
[2024-04-25 06:00] VITALS: BMI 23.7
[2024-04-25] MEDS: Piperacil/Tazobactam 3.375 GM in 0.9% Normal Saline (50mL MB+) 50 ML IV (06:00)
[2024-04-25] MEDS: Lactobacillis Acidophilus 1 CAP PO (06:00)
[2024-04-25] MEDS: Vancomycin HCl 250 MG Capsule 500 MG PO (06:00)
[2024-04-25 06:22] LABS: Bedside Glucose 124 mg/dL (74-106)
[2024-04-25 06:31] LABS: Bedside Glucose 89 mg/dL (74-106)
[2024-04-25 08:48] LABS: Absolute Lymphocyte Count 1.94 X10^3/uL (0.83-4.51); Absolute Neutrophil Count 6.5 X10^3/uL (2.0-7.7); Basophil# 0.05 X10^3/uL; Basophil% 0.5 % (0-1); Eosinophil# 0.41 X10^3/uL; Eosinophils% 4.2 % (0-5); Hematocrit 33.2 % (37-47); Lymphocyte # 1.94 X10^3/ul (0.83-4.51); Lymphocyte % 19.9 % (19-41); Mean Corp Hgb Conc 33.1 g/dL (32-36); Mean Corpuscular Hgb 27.8 pg (27.0-32.0); Mean Corpuscular Volume 84.1 fL (81-99); Mean Platelet Vol. 9.8 fl (6.2-12.0); Monocyte# 0.53 X10^3/uL; Monocyte% 5.4 % (0-10); NRBC Flagged by Analyzer 0 % (0-5); Neutrophil # 6.51 X10^3/uL (2.7-7.7); Neutrophil % 66.8 % (47-70); Platelet Count 288 K/mm3 (150-450); RBC Distribution Width CV 13.3 % (11.6-14.6); RBC Distribution Width SD 41.6 fl (35.1-43.9); Red Blood Count 3.95 M/mm3 (4.2-5.4); White Blood Count 9.8 K/mm3 (4.4-11.0)
[2024-04-25] MEDS: Aspirin 81 MG TAB.CHEW PO (09:29)
[2024-04-25] MEDS: Ferrous Sulfate 325 MG Tablet PO (09:29)
[2024-04-25] MEDS: DULoxetine Hcl 60 MG Capsule PO (09:29)
[2024-04-25 09:30] VITALS: BP 144/58; PULSE 77; RESP 18; TEMP 36.6; O2SAT 98
[2024-04-25] MEDS: Carvedilol 25 MG Tablet PO (09:30)
[2024-04-25] MEDS: Insulin Glargine-YFGN 100 UNIT/ML Pen SC (09:30)
[2024-04-25] MEDS: Pantoprazole Sodium 40 MG in 0.9% Normal Saline (100mL MB+) 100 ML 330 MG IV (09:30)
[2024-04-25] MEDS: Enoxaparin 30 MG/0.3 ML Syringe SC (09:30)
[2024-04-25] MEDS: Allopurinol 100 MG Tablet PO (09:31)
[2024-04-25 09:49] LABS: Anion Gap 8 (5-15); BUN 11 mg/dL (7-18); BUN/Creat Ratio 9.2 RATIO (10-20); Calcium,Total 8.5 mg/dL (8.5-10.1); Chloride 111 mmol/L (98-107); EST Glomerular Filtration Rate 47 mL/min (>60); Est Glom Filt Rate - Afr Amer 57 mL/min (>60); Estimated Creatinine Clearance 32.45 ml/min; Glucose 97 mg/dL (74-106); Sodium Level 143 mmol/L (136-145)
--- NOTE | 2024-04-25 12:10 | DCINST_ITS ---
Discharge Instructions Diet Discharge Diet: Low fat / Low cholesterol Activity Discharge Activity: Return to Normal Activity Weight Bearing Status: Weight bearing as tolerated Dressing / Incision Call your doctor if you observe: Fever of 101 or Higher, Shortness of breath, Dizziness, Swelling in the ankles and Chest pain Follow Up Care Test Results: Test results from this visit will be discussed in further detail at your follow- up appointment, if applicable. Discharge Plan Admission Admit Date/Time: 04/22/24 20:23 Primary Reason for Your Visit: covid, DKA, C Diff Attending Provider: Alberta Hernández Primary Care Provider: Erick Carrero,Out of Consulting Providers: Jordyn Queen; Calin Mcneill; Tom Lazo; Etienne Lambert; Tej Cherry; Sam Norris; Issa Kimbrough; Merlyn Slade; David Beaulieu; Pascual Ramirez; Bianca Dotson; Dilma Jones; Elías Juarez; Jude Vargas; Daryl Ram; Isha Polanco; Nikita Owen; Nnamdi Dial Instructions Patient Instructions: Coronavirus Disease 2019 (COVID-19): Overview Discharge Orders/Prescriptions Prescriptions: New vancomycin 125 mg capsule 125 mg PO Q6H 10 Days Qty: 40 0RF Continued allopurinol 100 mg tablet 100 mg PO DAILY aspirin 81 mg capsule 81 mg PO DAILY Tradjenta 5 mg tablet 5 mg PO DAILY pantoprazole 40 mg tablet,delayed release (DR/EC) 40 mg PO DAILY ergocalciferol (vitamin D2) 1,250 mcg (50,000 unit) capsule 1,250 mcg PO QWEEK duloxetine 60 mg capsule,delayed release(DR/EC) 60 mg PO BID carvedilol 25 mg tablet 25 mg PO BID gabapentin 600 mg tablet 600 mg PO QHS clopidogrel 75 mg tablet 75 mg PO QHS tizanidine 6 mg capsule 6 mg PO QHS quetiapine 50 mg tablet 50 mg PO QHS rosuvastatin 40 mg tablet 40 mg PO QHS ferrous sulfate [FeroSul] 325 mg (65 mg iron) tablet 325 mg PO QHS ondansetron 4 mg tablet,disintegrating 4 mg PO Q6H PRN PRN (Reason: nausea/vomiting) Referrals / Follow Up: [facility] Doctor,Out of [Primary Care Provider] - Within 1 Week Disposition Disposition (needs filled in before D/C Order can be placed): Home, Self Care
--- NOTE | 2024-04-25 12:11 | DS.PCM_ITS ---
Providers Date of Admission: 04/22/24 Date of Discharge: 04/25/24 Primary Care Physician: Out of Town Doctor Consultations 04/23/24 07:00 Consult: Computer Hardware Designer / Pulmonary Medicine Routine Consulting Provider: Intensivists/Pulmonary Med Reason for Consult: COVID, N/V/D, DKA EMERGENT Consult: No MD Notified: Yes Date Notified: 04/23/24 Time Notified: 04:32 Method of Notification: Text Reason For Visit: DKA, COVID, INTRACTABLE N/V/D, PANCOLITIS Diagnosis Discharge Diagnosis (1) Nausea vomiting and diarrhea: Status: Acute Code(s): R11.2 - Nausea with vomiting, unspecified; R19.7 - Diarrhea, unspecified (2) COVID-19: Status: Acute Code(s): U07.1 - COVID-19 (3) DKA (diabetic ketoacidoses): Status: Acute Code(s): E11.10 - Type 2 diabetes mellitus with ketoacidosis without coma Plan #DKA in a known diabetic * resolved. Blood sugar was elevated on admission * was on insulin drip, but has now come of insulin drip * now on SQ lantus. ISS> Accuchecks ACHS * A1C is 7.2 * on linagliptin. * #Hypokalemia: K is 3 today. Will replace aggressively and trend. #Acute colitis due to C Diff * admitted with intractable nausea, vomiting and diarrhea. * CT abdomen showed pancolitis. * Now improving, feels better. She is still having diarrhea * on IV zosyn * on PO vancomycin. Will dc IV zosyn * #AYDEN: * Cr today is slightly up to 1.29 from 1.09 on admission. * Cr is 1.09. Was 1.67 on admission. * she is also having diarrhea, so will hydrate gently with iVF. * bicarb is also 20 and he has very mild anion gap metabolic acidosis #COVID 19 infection * on room air. On IV remdesivr and decadron. * breathing treatment with bronchodilators * #Hyponatremia:resolved. #CAD s/p stents x 2: on aspirin, plavix and high intensity statin as well as coreg. #Hypertension; on coreg. IV hydralazine prn #GERD: on PPI #ANxiety and depression; on seroquel and duloxetine #Histoyr of gout: on allopurinol DVT prophylaxis: lovenox bid. Medications at Discharge Home Medications allopurinol 100 mg tablet 100 mg PO DAILY 04/22/24 aspirin 81 mg capsule 81 mg PO DAILY 04/22/24 carvedilol 25 mg tablet 25 mg PO BID 04/22/24 clopidogrel 75 mg tablet 75 mg PO QHS 04/22/24 duloxetine 60 mg capsule,delayed release 60 mg PO BID 04/22/24 ergocalciferol (vitamin D2) 1,250 mcg (50,000 unit) capsule 1,250 mcg PO QWEEK 04/22/24 ferrous sulfate 325 mg (65 mg iron) tablet (FeroSul) 325 mg PO QHS 04/22/24 gabapentin 600 mg tablet 600 mg PO QHS 04/22/24 linagliptin 5 mg tablet (Tradjenta) 5 mg PO DAILY 04/22/24 ondansetron 4 mg disintegrating tablet 4 mg PO Q6H PRN PRN nausea/vomiting 04/22/24 pantoprazole 40 mg tablet,delayed release 40 mg PO DAILY 04/22/24 quetiapine 50 mg tablet 50 mg PO QHS 04/22/24 rosuvastatin 40 mg tablet 40 mg PO QHS 04/22/24 tizanidine 6 mg capsule 6 mg PO QHS 04/22/24 vancomycin 125 mg capsule 125 mg PO Q6H 10 days #40 caps 04/25/24 Hospital Course Operations None Procedures None Summary of Care Provided Minutes Spent on Discharge: 55 Hospital Course: Patient is a 73 y/o female with a PMH as outlined who was admitted via the ED on 04/22/2024 with a complaint of abdominal discomfort, nausea and vomiting as well as diarrhea. She had a history of C. difficile. She complained of abdominal pain which was generalized and cramping. Review of systems otherwise negative. On admission in the ED WBC was elevated at 24.2. COVID test was positive. CT of the abdomen and pelvis showed severe nonspecific pancolitis. She was admitted and managed for acute gastroenteritis with pancolitis as well as COVID- 19 infection. She also had hyperglycemia and anion gap was elevated so she was managed for DKA. She was placed on heparin drip. She was hydrated with IV fluids initially kept NPO. C. difficile test was positive. She was therefore started on p.o. vancomycin. Her abdominal pain and gastroenteritis resolved and she felt much better. Her DKA also resolved. She was discharged home on 04/25/2024. She is follow-up with her primary care doctor within 1 to 2 weeks. She was continued on her Tradjenta for diabetes. Of note her A1c was only 7.2 so I suspect that her acute gastroenteritis and decreased oral intake may have contributed to her ketosis as well. She was discharged home on oral vancomycin to complete a 10-day course for the C. difficile. Patient seen and examined prior to discharge. She had no complaints and had an uneventful night. As stated diarrhea had improved markedly. Review of systems otherwise negative. Labs and vitals reviewed. Medication reviewed and reconciled. Physical Exam Const alert, oriented x3 and no apparent distress Constitutional Narrative: frail General Appearance: cooperative, comfortable and well kempt HEENT normocephalic, head/scalp atraumatic, hearing grossly normal bilaterally and moist oral mucous membranes Mouth: oral and palatal mucosa normal Eyes PERRL and EOMs intact bilaterally Neck no lymphadenopathy, supple and no JVD Lymph Lymphatic: no lymphadenopathy noted and no lymphedema noted Resp normal respiratory effort, normal air movement and clear to auscultation bilaterally Cardio regular rate, regular rhythm, S1 normal heart sound, S2 normal heart sound and no murmurs GI normal to inspection, nondistended, normoactive bowel sounds, soft to palpation, non-tender and non-distended Extremity normal to inspection, full ROM, normal capillary refill, no clubbing, cyanosis or edema and no calf tenderness General Extremity: no tenderness to palpation of joints or extremities Skin General Skin Exam: no breakdown Neuro oriented x3, CN's II-XII intact bilaterally, moves all extremities, no focal motor deficits, no sensory deficits noted and deep tendon reflexes 2+ bilaterally Sensorium / Orientation: awake and alert Motor Exam: general weakness Psych thought process normal, cooperative and affect normal Appearance: appropriate Weight / BMI Weight Weight: 125 lb 10.616 oz Body Mass Index (BMI) 23.7 ABG / Lab / Microbiology Data 04/25/24 08:00 04/25/24 08:00 Laboratory: Laboratory Results - last 24 hr 04/24/24 16:22: POC Glucose 132 H 04/24/24 23:41: POC Glucose 124 H 04/25/24 06:07: POC Glucose 89 04/25/24 08:00: WBC 9.8, RBC 3.95 L, Hgb 11.0 L, Hct 33.2 L, MCV 84.1, MCH 27.8, MCHC 33.1, RDW Std Deviation 41.6, RDW Coeff of Mayr 13.3, Plt Count 288, MPV 9.8, Immature Gran % (Auto) 3.200 H, Neut % (Auto) 66.8, Lymph % (Auto) 19.9, [place] % (Auto) 5.4, Eos % (Auto) 4.2, Baso % (Auto) 0.5, Absolute Neuts (auto) 6.5, Absolute Lymphs (auto) 1.94, Nucleated RBC % 0, Sodium 143, Potassium 3.0 L , Chloride 111 H, Carbon Dioxide 24.0, Anion Gap 8, BUN 11, Creatinine 1.20 H, Estim Creat Clear Calc 32.45, Est GFR (MDRD) Af Amer 57 L, Est GFR (MDRD) Non-Af 47 L, BUN/Creatinine Ratio 9.2 L, Glucose 97, Calcium 8.5 Microbiology: Microbiology 04/23/24 16:00 Stool C. difficile GDH Antigen & Toxins - Final Toxigenic C. difficile 04/23/24 16:00 Stool Clostridioides difficile (PCR) - Final 04/22/24 16:10 Mucosa - Nose SARS-CoV-2, Influenza & RSV (PCR) - Final SARS-CoV-2 (COVID 19 PCR) Radiography Diagnostic Testing: Radiology Impression Venous Doppler Study 04/23/24 00:10 Interpretation Summary Deep veins of the bilateral lower extremities are patent and compressible segmentally. There is no evidence of bilateral lower extremity deep vein thrombosis. The bilateral great saphenous veins appear patent and compressible segmentally. Ordering Physician: Jordyn Queen Referring Physician: N/A Performed By: Rush Craig RVT D/C Instructions Discharge Diet: Low fat / Low cholesterol Discharge Activity: Return to Normal Activity Weight Bearing Status: Weight bearing as tolerated Call your doctor if you observe: Fever of 101 or Higher, Shortness of breath, Dizziness, Swelling in the ankles and Chest pain Meaningful Use Info Meaningful Use Meaningful Use Diagnoses (Choose all that apply): None applicable Ischemic Stroke Statin Dosing Therapy Reference: STATIN DOSE THERAPY REFERENCE: * Patients > 75 years receive moderate or high dose statin therapy. * Patients 75 years or YOUNGER should receive HIGH intensity statin dose unless contraindicated. You will be required to document reason for non-treatment if statin daily dose does not meet guidelines. HIGH DOSE STATIN THERAPY DAILY Atorvastatin > than or = to 40 mg Rosuvastatin > than or = to 20 mg Amlodipine + Atorvastatin > than or = to 2.5/40 mg Ezetimibe + Simvastatin 10/80 mg Simvastatin 80mg Discharge Plan Admission Admit Date/Time: 04/22/24 20:23 Primary Reason for Your Visit: DICK collazo, Dasha Diff Attending Provider: Alberta Hernández Primary [facility] Provider: [facility] ,Out of Consulting Providers: Jordyn Queen; Calin Mcneill; Tom Lazo; Etienne Lambert; Tej Cherry; Sam Norris; Issa Kimbrough; Merlyn Slade; David Beaulieu; Pascual Ramirez; Bianca Dotson; Dilma Jones; Elías Juarez; Jude Vargas; Daryl Ram; Isha Polanco; Nikita Owne; Nnamdi Dial Instructions Patient Instructions: Coronavirus Disease 2019 (COVID-19): Overview Discharge Orders/Prescriptions Prescriptions: New vancomycin 125 mg capsule 125 mg PO Q6H 10 Days Qty: 40 0RF Continued allopurinol 100 mg tablet 100 mg PO DAILY aspirin 81 mg capsule 81 mg PO DAILY Tradjenta 5 mg tablet 5 mg PO DAILY pantoprazole 40 mg tablet,delayed release (DR/EC) 40 mg PO DAILY ergocalciferol (vitamin D2) 1,250 mcg (50,000 unit) capsule 1,250 mcg PO QWEEK duloxetine 60 mg capsule,delayed release(DR/EC) 60 mg PO BID carvedilol 25 mg tablet 25 mg PO BID gabapentin 600 mg tablet 600 mg PO QHS clopidogrel 75 mg tablet 75 mg PO QHS tizanidine 6 mg capsule 6 mg PO QHS quetiapine 50 mg tablet 50 mg PO QHS rosuvastatin 40 mg tablet 40 mg PO QHS ferrous sulfate [FeroSul] 325 mg (65 mg iron) tablet 325 mg PO QHS ondansetron 4 mg tablet,disintegrating 4 mg PO Q6H PRN PRN (Reason: nausea/vomiting) Referrals / Follow Up: [facility],Out of [Primary Care Provider] - Within 1 Week Disposition Disposition (needs filled in before D/C Order can be placed): Home, Self Care Charges/Coding Visit Charges Inpatient E&M: 62337 Disch Hosp >30min
== END 2024-04-25 13:12 | disposition home or self-care (01) | DRG 177 ==
LOC: ED 19:43 → ICU 20:36
PROVIDERS: Admitting Provider Family Medicine; Emergency Provider Surgery; Visit Provider Student in an Organized Health Care Education/Training Program
DX: U07.1 COVID-19 (principal); E11.10 Type 2 diabetes mellitus with ketoacidosis without coma; A04.72 Enterocolitis due to Clostridium difficile, not specified as recurrent; N17.9 Acute kidney failure, unspecified; I13.0 Hypertensive heart and chronic kidney disease with heart failure and stage 1 through stage 4 chronic kidney disease, or unspecified chronic kidney disease; K51.00 Ulcerative (chronic) pancolitis without complications; E87.1 Hypo-osmolality and hyponatremia; E11.22 Type 2 diabetes mellitus with diabetic chronic kidney disease; I50.9 Heart failure, unspecified; N18.30 Chronic kidney disease, stage 3 unspecified; D50.9 Iron deficiency anemia, unspecified; F32.A Depression, unspecified; E11.40 Type 2 diabetes mellitus with diabetic neuropathy, unspecified; I25.10 Atherosclerotic heart disease of native coronary artery without angina pectoris; K21.9 Gastro-esophageal reflux disease without esophagitis; E78.5 Hyperlipidemia, unspecified; M10.9 Gout, unspecified; E87.6 Hypokalemia; I25.2 Old myocardial infarction; F41.9 Anxiety disorder, unspecified; Z87.891 Personal history of nicotine dependence; Z79.82 Long term (current) use of aspirin; Z79.899 Other long term (current) drug therapy; Z79.84 Long term (current) use of oral hypoglycemic drugs
CPT/HCPCS: 74177; 80048; 80053; 80076; 81001; 82009; 82550; 82728; 82803; 82962; 83036; 83605; 83615; 83690; 83735; 83880; 84100; 84145; 85025; 85379; 86140; 87040; 87493; 87631; 90662; 93970; 94668; 97161; 97165; 97802; 99284; J7030; J7050; Q9967; A4216; J0248; J2405; J7799